=== PATIENT | female | born 1985 | race Caucasian/White ===

== ENCOUNTER 2019-09-26 14:32 | Emergency (ER) | payer SELFPAY ==
[2019-09-26] MEDS ORDERED: LORazepam 2 MG/ML VIAL ONE (15:09)
[2019-09-26 15:16] LABS: Urine Bacteria <20 /HPF (<20); Urine Culture Reflex Order NOT NEEDED; Urine RBC <5 /HPF (NONE SEEN)
--- NOTE | 2019-09-26 15:43 | RAD REPORT ---
EXAM DESCRIPTION: CT - Head Brain Wo Cont - 09/26/2019 3:11 pm CLINICAL HISTORY: Headache COMPARISON: None. TECHNIQUE: Computed axial tomography of the head was obtained. IV contrast was not requested. All CT scans are performed using dose optimization technique as appropriate and may include automated exposure control or mA/KV adjustment according to patient size. FINDINGS: An intracranial bleed is not seen . The ventricles are normal in caliber. No extra-axial fluid collection is noted. Fluid within the sinuses/ mastoids is not seen. IMPRESSION: No acute intracranial abnormality is seen. If patient's symptoms persist MRI of the bra in would be recommended.
[2019-09-26 15:47] LABS: Absolute Lymphocytes (CBC) 1.7 K/uL (0.7-4.9); Basophils % 0.8 % (0-1.3); Hematocrit 36.6 % (36.0-45.0); Lymphocytes % 26.8 % (15.3-44.8); MPV 9.4 fL (7.6-11.3); RBC Red Blood Cell Count 3.99 M/uL (3.86-4.86)
[2019-09-26 16:00] LABS: BUN Blood Urea Nitrogen 10 mg/dL (7-18); Bicarbonate 27 mmol/L (21-32); Glucose Level 118 mg/dL (74-106); Potassium 3.3 mmol/L (3.5-5.1); Sodium Level 140 mmol/L (136-145); Troponin (Emerg Dept Use Only) < 0.02 ng/mL (0.0-0.045)
[2019-09-26 16:00] LABS: Barbiturates NEGATIVE (NEGATIVE); Benzodiazepines NEGATIVE (NEGATIVE); Cocaine NEGATIVE (NEGATIVE); METHAMPHETAM NEGATIVE (NEGATIVE); Methadone NEGATIVE (NEGATIVE); Opiates NEGATIVE (NEGATIVE); Phencyclidine NEGATIVE (NEGATIVE); THC Cannibis POSITIVE (NEGATIVE)
--- OUTSIDE RECORDS SUMMARY | 2019-09-26 16:33 | XMS REPORT | Summary of Care ---
:1985 Author Organization [facility] - [facility] Address [address] [place] [id number] Care Team Providers Name Role Phone Maddi Sanders MD Primary Care Provider Reason for Visit Reason Comments Refill Request Encounter Details Date Type Department Care Team Description 08/08/2019 Refill [facility] Pediatric and Kenya Sanders, Refill Request Adult Primary Care- MD Escoto [address] [place] [address] [address] [facility], [address] [place] [address] [place] [address] [phone] Allergies Active Allergy Reactions Severity Noted Date Comments Latex Rash 12/05/2014 Nitrofurantoin Monohyd/M-Cryst Diarrhea, Other - See 1 Fever comments Meloxicam Shortness of Breath 07/15/2015 Mold Anaphylaxis High 08/22/2017 Tramadol Shortness of Breath 07/15/2015 documented as of this encounter (statuses as of 08/09/2019) Medications Medication Sig Dispensed Refills Start Date End Date Status cholecalciferol, Take 5,000 0 Ac tive vitamin D3, (VITAMIN Units by mouth D3) 1,000 unit tablet daily. ferrous sulfate (IRON Take by mouth. 0 Active ORAL) cyanocobalamin, vitamin Take by mouth. 0 Active B-12, (VITAMIN B-12 ORAL) ascorbate calcium Take by mouth. 0 Active (VITAMIN C ORAL) conjugated estrogens Insert 0.5 g 30 g 3 02/14/2018 Active (PREMARIN) 0.625 into vagina at mg/gram vaginal bedtime. Use creamIndications: twice a week Vaginal pain vaginally. cholestyramine light 1 scoop 4 times 239.4 g 3 10/23/2018 Active (CHOLESTYRAMINE LIGHT) a day. 4 gram powderIndications: Toxin exposure ESOMEPRAZOLE 40 mg TAKE 1 CAPSULE 180 capsule 1 01/23/2019 Active capsuleIndications: BY MOUTH TWICE Gastroesophageal reflux A DAY disease, esophagitis presence not specified FLUTICASONE PROPIONATE USE 1 SPRAY IN 48 g 3 02/23/2019 Active 50 mcg/actuation nasal EACH NOSTRIL 2 sprayIndications: Upper (TWO) TIMES respiratory tract DAILY. infection, unspecified type FAMOTIDINE 40 mg USE DIRECTED 90 tablet 3 04/20/2019 Active tabletIndications: Gastroesophageal reflux disease, esophagitis presence not specified TRAZODONE 50 mg TAKE 1 PILL AT 180 tablet 3 04/20/2019 Active tabletIndications: NIGHT FOR Anxiety, Other INSOMNIA, CAN insomnia, Other INCREASE TO 2 depression IF NEEDED. BUSPIRONE 10 mg TAKE 1 TABLET 180 tablet 3 04/20/2019 Active tabletIndications: BY MOUTH TWICE Anxiety A DAY PAROXETINE 30 mg TAKE 1 TABLET 90 tablet 3 05/16/2019 Active tabletIndications: BY MOUTH EVERY Reactive depression, DAY Anxiety RANITIDINE 300 mg TAKE 1 TABLET 90 tablet 1 08/09/2019 Active tabletIndications: BY MOUTH Gastroesophageal reflux EVERYDAY AT disease, esophagitis BEDTIME presence not specified documented as of this encounter (statuses as of 08/09/2019) Active Problems Problem Noted Date Anxiety 10/12/2015 Hot flashes 10/12/2015 documented as of this encounter (statuses as of 08/09/2019) Resolved Problems Problem Noted Date Resolved Date Nausea 10/12/2015 01/08/2017 Vomiting 10/12/2015 01/08/2017 Diarrhea 10/12/2015 01/08/2017 documented as of this encounter (statuses as of 08/09/2019) Immunizations Name Administration Dates Next Due Influenza Virus Vaccine Quad IM 3+ YRS 02/14/2018 PPD (TB) 02/14/2018 Tdap 11/14/2014 documented as of this encounter Social History Tobacco Use Types Packs/Day Years Used Date Former Smoker Cigarettes Smokeless Tobacco: Never Used Comments: vapes Alcohol Use Drinks/Week oz/Week Comments No Sex Assigned at Date Recorded Not on file Job Start Date Occupation Industry Not on file Not on file Not on file Travel History Travel Start Travel End No recent travel history available. documented as of this encounter Last Filed Vital Signs Not on filedocumented in this encounter Plan of Treatment Health Maintenance Due Date Last Done Comments INFLUENZA VACCINE (Season Ended) 2019 02/14/2018 DTaP,Tdap,and Td Vaccines (2 - 11/14/2024 11/14/2014 Td) PAP SMEAR Discontinued 10/31/2009 PNEUMOCOCCAL 0-64 YEARS COMBINED Aged Out No longer eligible based on SERIES patient's age to complete this topic VARICELLA VACCINES Discontinued documented as of this encounter Results Not on filedocumented in this encounter Visit Diagnoses Diagnosis Gastroesophageal reflux disease, esophag itis presence not specified documented in this encounter Insurance Payer Benefit Plan / Subscriber ID Effective Dates Phone Addre ss Type Group [facility] [id number] 2017-Present PPO documented as of this encounter
--- OUTSIDE RECORDS SUMMARY | 2019-09-26 16:33 | XMS REPORT | Summary of Care ---
:1985 Author Organization [facility] - [facility] Address [address] [place] [address] Care Team Providers Name Role Phone Maddi Sanders MD Primary Care Provider Reason for Visit Reason Comments Refill Request Encounter Details Date Type Department Care Team Description 08/09/2019 Refill [facility] Pediatric and Kenya Sanders, Refill Request Adult Primary Care- MD Escoto [address] [place] [address] [address] [facility], [address] [place] [address] [place] [address] [phone] Allergies Active Allergy Reactions Severity Noted Date Comments Latex Rash 12/05/2014 Nitrofurantoin Monohyd/M-Cryst Diarrhea, Other - See 1 Fever comments Meloxicam Shortness of Breath 07/15/2015 Mold Anaphylaxis High 08/22/2017 Tramadol Shortness of Breath 07/15/2015 documented as of this encounter (statuses as of 08/14/2019) Medications Medication Sig Dispensed Refills Start Date End Date Status cholecalciferol, Take 5,000 0 Ac tive vitamin D3, (VITAMIN Units by D3) 1,000 unit tablet mouth daily. ferrous sulfate (IRON Take by 0 Active ORAL) mouth. cyanocobalamin, Take by 0 Acti ve vitamin B-12, mouth. (VITAMIN B-12 ORAL) ascorbate calcium Take by 0 Ac tive (VITAMIN C ORAL) mouth. conjugated estrogens Insert 0.5 g 30 g 3 02/14/2018 Active (PREMARIN) 0.625 into vagina mg/gram vaginal at bedtime. creamIndications: Use twice a Vaginal pain week vaginally. cholestyramine light 1 scoop 4 239.4 g 3 10/23/2018 Active (CHOLESTYRAMINE times a day. LIGHT) 4 gram powderIndications: Toxin exposure ESOMEPRAZOLE 40 mg TAKE 1 180 capsule 1 01/23/2019 Active capsuleIndications: CAPSULE BY Gastroesophageal MOUTH TWICE A reflux disease, DAY esophagitis presence not specified FLUTICASONE USE 1 SPRAY 48 g 3 02/23/2019 Activ e PROPIONATE 50 IN EACH mcg/actuation nasal NOSTRIL 2 sprayIndications: (TWO) TIMES Upper respiratory DAILY. tract infection, unspecified type FAMOTIDINE 40 mg USE 90 tablet 3 04/20/2019 Ac tive tabletIndications: DIRECTED Gastroesophageal reflux disease, esophagitis presence not specified TRAZODONE 50 mg TAKE 1 PILL 180 tablet 3 04/20/2019 Active tabletIndications: AT NIGHT FOR Anxiety, Other INSOMNIA, CAN insomnia, Other INCREASE TO 2 depression IF NEEDED. BUSPIRONE 10 mg TAKE 1 TABLET 180 tablet 3 04/20/2019 Active tabletIndications: BY MOUTH Anxiety TWICE A DAY PAROXETINE 30 mg TAKE 1 TABLET 90 tablet 3 05/16/2019 Active tabletIndications: BY MOUTH Reactive depression, EVERY DAY Anxiety FAMOTIDINE 20 mg TAKE 1 TABLET 90 tablet 1 08/14/2019 Active tabletIndications: BY MOUTH Gastroesophageal EVERYDAY AT reflux disease, BEDTIME esophagitis presence not specified RANITIDINE 300 mg TAKE 1 TABLET 90 tablet 1 08/09/2019 0 Discontinued tabletIndications: BY MOUTH 20 Gastroesophageal EVERYDAY AT reflux disease, BEDTIME esophagitis presence not specified documented as of this encounter (statuses as of 08/14/2019) Active Problems Problem Noted Date Anxiety 10/12/2015 Hot flashes 10/12/2015 documented as of this encounter (statuses as of 08/14/2019) Resolved Problems Problem Noted Date Resolved Date Nausea 10/12/2015 01/08/2017 Vomiting 10/12/2015 01/08/2017 Diarrhea 10/12/2015 01/08/2017 documented as of this encounter (statuses as of 08/14/2019) Immunizations Name Administration Dates Next Due Influenza [...] Effective Dates Phone Addre ss Type Group [facility] [id number] 2017-Present PPO documented as of this encounter
--- OUTSIDE RECORDS SUMMARY | 2019-09-26 16:33 | XMS REPORT | Summary of Care ---
:1985 Author Organization [facility] - Health Address [address] [place] [address] Care Team Providers Name Role Phone Maddi Sanders MD Primary Care Provider Encounter Details Date Type Department Care Team Description 09/13/2019 Orders Only [facility] Doctor Unassigned, No [address] [facility] Name [place] [phone] Allergies Active Allergy Reactions Severity Noted Date Comments Latex Rash 12/05/2014 Nitrofurantoin Monohyd/M-Cryst Diarrhea, Other - See 1 Fever comments Meloxicam Shortness of Breath 07/15/2015 Mold Anaphylaxis High 08/22/2017 Tramadol Shortness of Breath 07/15/2015 documented as of this encounter (statuses as of 09/13/2019) Medications Medication Sig Dispensed Refills Start Date [...] BY MOUTH EVERY Reactive depression, DAY Anxiety FAMOTIDINE 20 mg TAKE 1 TABLET 90 tablet 1 08/14/2019 Active tabletIndications: BY MOUTH Gastroesophageal reflux EVERYDAY AT disease, esophagitis BEDTIME presence not specified documented as of this encounter (statuses as of 09/13/2019) Active Problems Problem Noted Date Anxiety 10/12/2015 Hot flashes 10/12/2015 documented as of this encounter (statuses as of 09/13/2019) Resolved Problems Problem Noted Date Resolved Date Nausea 10/12/2015 01/08/2017 Vomiting 10/12/2015 01/08/2017 Diarrhea 10/12/2015 01/08/2017 documented as of this encounter (statuses as of 09/13/2019) Immunizations Name Administration Dates Next Due Influenza [...] VACCINES Discontinued documented as of this encounter Procedures Procedure Name Priority Date/Time Associated Diagnosis Comme nts ASSIGNMENT OF BENEFITS Routine 09/13/2019 6:11 PM CDT documented in this encounter Results Not on filedocumented in this encounter Insurance Payer Benefit Plan / Subscriber ID Effective Dates Phone Addre ss Type Group [facility] [id number] 2017-Present PPO documented as of this encounter
--- OUTSIDE RECORDS SUMMARY | 2019-09-26 16:34 | XMS REPORT | Continuity of Care Document ---
:1985 Author Organization [facility] t Address [address] [place] [address] Care Team Providers Name Role Phone Tommy BALDWIN, Maddi Attending Clinician Yuliya SÁNCHEZ, L Attending Clinician Unavailable Radha Nur Attending Clinician Bud BALDWIN Attending Clinician Regi Hill Attending Clinician Doctor Unassigned, Name Attending Clinician Unavailable Bud BALDWIN Admitting Clinician Payers Payer Name Policy Type Policy Number Effective Date Expiration Date S ource Problems This patient has no known problems. Allergies, Adverse Reactions, Alerts Allergy Allergy Status Severity Reaction(s) Onset Inactive Treating Comm ents Source Name Type Date Date Clinician No DA Active U [facility] 6-15 [place] Informat 00:00: d ion 00 [facility] e Medications This patient has no known medications. Procedures This patient has no known procedures. Encounters Start End Encounter Admission Attending Care Care Encounter Source Date/Time Date/Time Type Type Clinicians Facility Department ID 2019-09-25 2019-09-25 Telephone JAY Sanders 1.2.840.114 [id number] 00:00:00 00:00:00 Lina Escoto [id number] [place] 4.2.7.2.686 [facility] [phone] [address] 2019-09-19 2019-09-19 Transition Yusuf Dwyer 1.2.840.114 [id number] 00:00:00 00:00:00 of Care Juliana Ansari [id number] [place] [phone] [id number] 2019 2019-09-17 [facility] Smita Longoria [facility] 1.2.8 40.114 [id number] 20:47:34 13:13:00 Encounter Smita hernandez [facility] 350.1.1 3.10 Delfina Farrell [place] 4.2.7.2.686 [place] [id number] 2019-09-14 2019 [facility] 1.2.840.114 [id number] 23:21:30 00:33:00 Smita Escoto 350.1.13.10 [place] 4.2.7.2.686 [place] [id number] [id number] 2019-09-13 2019-09-13 Emergency [facility] 1.2.840.114 [id number] 18:12:40 21:17:00 Magdalena Deluna [facility] 350.1.13.10 [place] 4.2.7.2.686 [place] [id number] [id number] 2019-09-13 2019-09-13 Orders Doctor BIJU 1.2.840.114 [id number] 00:00:00 00:00:00 Only Unassigned, SHAWANDA 350.1.13.10 [place] [facility] 4.2.7.2.686 [id number] 2019-08-09 2019-08-09 Refill Tommy [facility] 1.2.840.114 [id number] 00:00:00 00:00:00 Lina Escoto 350.1.13.10 [place] 4.2.7.2.686 [facility] [phone] [address] 2019-08-08 2019-08-08 Refill Tommy [facility] 1.2.840.114 [id number] 00:00:00 00:00:00 Lina Escoto 350.1.13.10 [place] 4.2.7.2.686 [facility] [id number] [facility] 2019-05-18 2019-05-18 Patient Tommy [facility] 1.2.840.114 [id number] 00:00:00 00:00:00 Secure Msg Lina Escoto 350.1.13.10 [place] 4.2.7.2.686 [facility] [id number] [address] 2019-05-16 2019-05-16 [facility] 1.2.840.114 [id number] 00:00:00 00:00:00 Lina Escoto 350.1.13.10 [place] 4.2.7.2.686 [facility] [id number] [address] 2018-12-01 2018-12-01 Office [facility] 1.2.840.114 [id number] 07:05:29 07:43:46 Visit Lina Escoto 350.1.13.10 [place] 4.2.7.2.686 [facility] [phone] [address] Results Test Description Test Time Test Comments Results Result Comments Source UA RFLX MICR CULT IF INDICATED 2019-09-18 10:54:00 Test Item Value Reference Range Interpretation Comme nts UA COLOR (test code = COLU) YELLOW discript YEL/STRAW UA APPEARANCE (test code = APPU) CLEAR discript CLEAR UA GLUCOSE DIPSTICK (test code = DGLUU) NEGATIVE mg/dL NEG UA BILIRUBIN DIPSTICK (test code = BILU) NEGATIVE mg/dL NEG UA KETONE DIPSTICK (test code = KETU) 2+ mg/dL NEG A UA SPECIFIC GRAVITY (test code = SGU) 1.010 SG 1.005-1.030 UA BLOOD DIPSTICK (test code = WAN) TRACE mg/DL NEG A UA PH DIPSTICK (test code = ANGELY) 6.0 pH UNITS 5.0-7.0 UA PROTEIN DIPSTICK (test code = PROU) NEGATIVE mg/dL NEG UA UROBILINIOGEN DIPSTICK (test code = URO) 0.2 mg/dL <2.0 UA NITRITE DIPSTICK (test code = JON) NEGATIVE SCREEN NEG UA LEUKOCYTE ESTERASE DIPSTICK (test code = LEUU) NEGATIVE Leuk/mcL NEGATIVE UA WBC (test code = WBCU) 0-1 #WBC/HPF 0-3 UA RBC (test code = RBCU) 0-1 #RBC/HPF 0-3 UA BACTERIA (test code = BACU) TRACE /HPF NONE-TRACE UA SQUAMOUS CELLS (test code = SQU) 1+ /HPF NONE A UA CULTURE NEEDED? (test code = UACULT) NO, WBC<10 Criteria Culture CHK SOURCE OF URINE: CLEAN CATCHIndication for culture: Flank PainDRUGS OF ABUSE SCREEN [id number] 10:54:00 Test Item Value Reference Range Interpretation Comments URN COCAINE (test code = COCAURN) SCcutoff <300 NG/ML URN CANNABINOIDS (test code = SCcutoff <50 NG/ML CANNABURN) URN AMPHETAMINE (test code = SCcutoff <1000 NG/ML AMPHETURN) URN BARBITURATE (test code = SCcutoff <200 NG/ML BARBITURN) URN BENZODIAZEPINE (test code = SCcutoff <200 NG/ML BENZOURN) URN OPIATES (test code = OPIATURN) SCcutoff <2000 NG/ML URN PHENCYCLIDINE (PCP) (test code SCcutoff <25 NG/ML = PHENCURN) URN METHADONE (test code = SCcutoff <300 NG/ML METHAURN) SOURCE OF URINE: CLEAN CATCHIndication for culture: Flank PainUA RFLX MICR CULT IF [id number] 10:54:00 Test Item Value Reference Range Interpretation Comments UA COLOR (test code = YELLOW discript YEL/STRAW COLU) UA APPEARANCE (test code CLEAR discript CLEAR = APPU) UA GLUCOSE DIPSTICK (test NEGATIVE mg/dL NEG code = DGLUU) UA BILIRUBIN DIPSTICK NEGATIVE mg/dL NEG (test code = BILU) UA KETONE DIPSTICK (test 2+ mg/dL NEG A code = KETU) UA SPECIFIC GRAVITY (test 1.010 SG 1.005-1.030 code = SGU) UA BLOOD DIPSTICK (test TRACE mg/DL NEG A code = WAN) UA PH DIPSTICK (test code 6.0 pH UNITS 5.0-7.0 = ANGELY) UA PROTEIN DIPSTICK (test NEGATIVE mg/dL NEG code = PROU) UA UROBILINIOGEN DIPSTICK 0.2 mg/dL <2.0 (test code = URO) UA NITRITE DIPSTICK (test NEGATIVE SCREEN NEG code = JON) UA LEUKOCYTE ESTERASE NEGATIVE Leuk/mcL NEGATIVE DIPSTICK (test code = LEUU) UA WBC (test code = WBCU) 0-1 #WBC/HPF 0-3 UA RBC (test code = RBCU) 0-1 #RBC/HPF 0-3 UA BACTERIA (test code = TRACE /HPF NONE-TRACE BACU) UA SQUAMOUS CELLS (test 1+ /HPF NONE A code = SQU) UA CULTURE NEEDED? (test NO, WBC<10 Criteria Culture CHK code = UACULT) SOURCE OF URINE: CLEAN CATCHIndication for culture: Flank PainDRUGS OF ABUSE SCREEN [id number] 10:54:00 Test Item Value Reference Range Interpretation Comments URN COCAINE (test code = NEGATIVE SCcutoff <300 NG/ML COCAURN) URN CANNABINOIDS (test code POSITIVE SCcutoff <50 NG/ML A = CANNABURN) URN AMPHETAMINE (test code NEGATIVE SCcutoff <1000 NG/ML = AMPHETURN) URN BARBITURATE (test code NEGATIVE SCcutoff <200 NG/ML = BARBITURN) URN BENZODIAZEPINE (test NEGATIVE SCcutoff <200 NG/ML code = BENZOURN) URN OPIATES (test code = NEGATIVE SCcutoff <2000 NG/ML OPIATURN) URN PHENCYCLIDINE (PCP) NEGATIVE SCcutoff <25 NG/ML (test code = PHENCURN) URN METHADONE (test code = NEGATIVE SCcutoff <300 NG/ML METHAURN) SOURCE OF URINE: CLEAN CATCHIndication for culture: Flank PainBASIC METABOLIC [id number] 10:54:00 Test Item Value Reference Range Interpretation Comments SODIUM (test code = NA) 138 mmol/L 134-147 N POTASSIUM (test code = 3.1 mmol/L 3.4-5.0 L K) CHLORIDE (test code = 104 mmol/L 100-108 N CL) CARBON DIOXIDE (test 25 mmol/L 21-32 N code = CO2) ANION GAP (test code = 9.0 GAP calc 4.0-15.0 N GAP) GLUCOSE (test code = 102 MG/DL 70-110 N GLU) BLOOD UREA NITROGEN 6 MG/DL 7-18 L (test code = BUN) GLOMERULAR FILTRATION >=60 max estimate >60 RATE (test code = GFR) estGFR CREATININE (test code = 0.8 MG/DL 0.6-1.0 N CREAT) CALCIUM (test code = CA) 9.2 MG/DL 8.5-10.1 N Last Dose Date: 09/16/19 Dose Time: 945HEPATIC FUNCTION [id number] 10:54:00 Test Item Value Reference Range Interpretation Comments TOTAL PROTEIN (test code = PROT) 7.9 G/DL 6.4-8.2 N ALBUMIN (test code = ALB) 4.5 G/DL 3.4-5.0 N BILIRUBIN TOTAL (test code = BILT) 0.60 MG/DL 0.2-1.2 N BILIRUBIN DIRECT (test code = 0.10 MG/DL 0.00-0.30 N BILD) BILIRUBIN INDIRECT (test code = 0.50 MG/DL 0.2-1.2 N BILIND) SGOT/AST (test code = AST) 15 Unit/L 15-37 N SGPT/ALT (test code = ALT) 25 Unit/L 12-78 N ALKALINE PHOSPHATASE TOTAL (test 73 Unit/L 45-117 N code = ALKP) Last Dose Date: 09/16/19 Dose Time: 945THYROID STIMULATING HORMONE 2019-09-18 10:54:00 Test Item Value Reference Range Interpretation Comments THYROID STIMULATING HORMONE 1.830 mcIU/ML 0.340-4.820 N (test code = TSH) Last Dose Date: 09/16/19 Dose Time: [id number] 10:54:00 Test Item Value Reference Range Interpretation Comments ACETAMINOPHEN (test code = ACET) < 2.0 mcG/ML 10.0-30.0 L Last Dose Date: 09/16/19 Dose Time: [id number] 10:54:00 Test Item Value Reference Range Interpretation Comments ALCOHOL (test code = ALC) < 3 MG/DL 0-10 N Last Dose Date: 09/16/19 Dose Time: 945- CT HEAD/BRAIN W/O [id number] 10:53:00 Name: KAMILA WRIGHT : 1985 Age/S: 34 / F [address] [place] Unit #: [id number] Loc: [place] [address] Phys: Bonita Bullock MD Acct: [id number] Dis Date: Status: REG ER PHONE #: [phone] Exam Date: 09/18/2019 1050 FAX #: Reason: AMS, new onset seizure EXAMS: CPT: [id number] CT HEAD/BRAIN W/O CONT 52816 CLINICAL HISTORY: AMS, new onset of seizures. CT brain, unenhanced. Reformatted sagittal and coronal images. COMPARISON: None. Automated exposure control, iterative reconstruction technique, and/or adjustment of mA and/or kV according to patient's size was utilized for optimum radiation dose reduction. An unenhanced study of the brain was performed. The cortical pattern is symmetric. No structural abnormality found. No focal areasof cortical hemorrhage or edema. No subdural hemorrhage, mass effect, or findings of CVA can be seen. No evidence of ventricular shift. The posterior fossa structures appear to be intact. Bone window settings do not show any evidence of skull fracture. Visualized sinuses appear to be clear. Empty sella appearance.. IMPRESSION: No acute appearing intracranial abnormality. No structural abnormality. Location: U19 at 1053 Reported and signed by: Roberto Hilliard M.D CC: Bonita Bullock MD Technologist:Francesca Blackmon RT(R)(CT) CTDI: DLP: Trnscb Date/Time: 09/18/2019 (1053) [email or web address] Orig Print D/T: S: 09/18/2019 (1451) PAGE 1 Signed ReportUA RFLX MICR CULT IF [id number] 10:44:00 Test Item Value Reference Range Interpretation Comments UA COLOR (test code = COLU) YELLOW discript YEL/STRAW UA APPEARANCE (test code = CLEAR discript CLEAR APPU) UA GLUCOSE DIPSTICK (test NEGATIVE mg/dL NEG code = DGLUU) UA BILIRUBIN DIPSTICK (test NEGATIVE mg/dL NEG code = BILU) UA KETONE DIPSTICK (test 2+ mg/dL NEG A code = KETU) UA SPECIFIC GRAVITY (test 1.010 SG 1.005-1.030 code = SGU) UA BLOOD DIPSTICK (test TRACE mg/DL NEG A code = WAN) UA PH DIPSTICK (test code = 6.0 pH UNITS 5.0-7.0 ANGELY) UA PROTEIN DIPSTICK (test NEGATIVE mg/dL NEG code = PROU) UA UROBILINIOGEN DIPSTICK 0.2 mg/dL <2.0 (test code = URO) UA NITRITE DIPSTICK (test NEGATIVE SCREEN NEG code = JON) UA LEUKOCYTE ESTERASE NEGATIVE Leuk/mcL NEGATIVE DIPSTICK (test code = LEUU) UA CULTURE NEEDED? (test Criteria Culture CHK code = UACULT) SOURCE OF URINE: CLEAN CATCHIndication for culture: Flank PainDRUGS OF ABUSE SCREEN [id number] 10:44:00 Test Item Value Reference Range Interpretation Comments URN COCAINE (test code = COCAURN) SCcutoff <300 NG/ML URN CANNABINOIDS (test code = SCcutoff <50 NG/ML CANNABURN) URN AMPHETAMINE (test code = SCcutoff <1000 NG/ML AMPHETURN) URN BARBITURATE (test code = SCcutoff <200 NG/ML BARBITURN) URN BENZODIAZEPINE (test code = SCcutoff <200 NG/ML BENZOURN) URN OPIATES (test code = OPIATURN) SCcutoff <2000 NG/ML URN PHENCYCLIDINE (PCP) (test code SCcutoff <25 NG/ML = PHENCURN) URN METHADONE (test code = SCcutoff <300 NG/ML METHAURN) SOURCE OF URINE: CLEAN CATCHIndication for culture: Flank PainBASIC METABOLIC [id number] 10:43:00 Test Item Value Reference Range Interpretation Comments SODIUM (test code = NA) 138 mmol/L 134-147 N POTASSIUM (test code = 3.1 mmol/L 3.4-5.0 L K) CHLORIDE (test code = 104 mmol/L 100-108 N CL) CARBON DIOXIDE (test 25 mmol/L 21-32 N code = CO2) ANION GAP (test code = 9.0 GAP calc 4.0-15.0 N GAP) GLUCOSE (test code = 102 MG/DL 70-110 N GLU) BLOOD UREA NITROGEN 6 MG/DL 7-18 L (test code = BUN) GLOMERULAR FILTRATION >=60 max estimate >60 RATE (test code = GFR) estGFR CREATININE (test code = 0.8 MG/DL 0.6-1.0 N CREAT) CALCIUM (test code = CA) 9.2 MG/DL 8.5-10.1 N Last Dose Date: 09/16/19 Dose Time: 945HEPATIC FUNCTION [id number] 10:43:00 Test Item Value Reference Range Interpretation Comments TOTAL PROTEIN (test code = PROT) 7.9 G/DL 6.4-8.2 N ALBUMIN (test code = ALB) 4.5 G/DL 3.4-5.0 N BILIRUBIN TOTAL (test code = BILT) 0.60 MG/DL 0.2-1.2 N BILIRUBIN DIRECT (test code = 0.10 MG/DL 0.00-0.30 N BILD) BILIRUBIN INDIRECT (test code = 0.50 MG/DL 0.2-1.2 N BILIND) SGOT/AST (test code = AST) 15 Unit/L 15-37 N SGPT/ALT (test code = ALT) 25 Unit/L 12-78 N ALKALINE PHOSPHATASE TOTAL (test 73 Unit/L 45-117 N code = ALKP) Last Dose Date: 09/16/19 Dose Time: 945THYROID STIMULATING HORMONE 2019-09-18 10:43:00 Test Item Value Reference Range Interpretation Comments THYROID STIMULATING HORMONE 1.830 mcIU/ML 0.340-4.820 N (test code = TSH) Last Dose Date: 09/16/19 Dose Time: [id number] 10:43:00 Test Item Value Reference Range Interpretation Comments ACETAMINOPHEN (test code = ACET) mcG/ML 10.0-30.0 Last Dose Date: 09/16/19 Dose Time: [id number] 10:43:00 Test Item Value Reference Range Interpretation Comments ALCOHOL (test code = ALC) < 3 MG/DL 0-10 N Last Dose Date: 09/16/19 Dose Time: [id number] 10:42:00 Test Item Value Reference Range Interpretation Comments SALICYLATE (test code = GISELLE) 1.9 MG/DL 2.8-20.0 THER L HCG [id number] 10:26:00 Test Item Value Reference Range Interpretation Comments HCG SERUM (test 3 mi-IU/ML 0-6 N 0 - 6 NOT code = HCG) > 6 SUGGESTIVE O F EARLY RISES TWO F OLD EVERY 2 DAYS; SUGGEST RECON FIRMING AFTER 2 DAYS. 150,000 -200,[address] TRIMESTE R 10,000 - 50,000 2ND & 3RD TRIMESTER CBC W/AUTO [id number] 10:00:00 Test Item Value Reference Range Interpretation Comments WHITE BLOOD CELL (test code = 11.3 K/mm3 3.5-11.0 H WBC) RED BLOOD CELL (test code = 4.27 M/mm3 4.70-6.10 L RBC) HEMOGLOBIN (test code = HGB) 12.8 G/DL 10.4-14.9 N HEMATOCRIT (test code = HCT) 39.4 % 31.5-44.1 N MEAN CELL VOLUME (test code = 92.3 Fl 84.5-98.6 N MCV) MEAN CELL HGB (test code = MCH) 30.0 pg 27.0-34.2 N MEAN CELL HGB CONCETRATION 32.5 G/DL 31.5-34.0 N (test code = MCHC) RED CELL DISTRIBUTION WIDTH 13.8 SD 11.5-14.5 N (test code = RDW) PLATELET COUNT (test code = 293 K/mm3 150-450 N PLT) MEAN PLATELET VOLUME (test code 11.10 fL 7.0-10.5 H = MPV) NEUTROPHIL % (test code = NT%) 71.1 % 40-76 N LYMPHOCYTE % (test code = LY%) 16.8 % 20.5-51.1 L MONOCYTE % (test code = MO%) 11.4 % 1.7-9.3 H EOSINOPHIL % (test code = EO%) 0.1 % 0.0-6.0 N BASOPHIL % (test code = BA%) 0.3 % 0.0-2.0 N NUCLEATED RBC % (test code = 0.0 /100WBC% 0.0-1.0 N NRBC%) NEUTROPHIL # (test code = NT#) 8.1 K/mm3 1.8-7.6 H IMMATURE GRANULOCYTE # (test 0.03 x10 3/uL 0.00-0.03 N code = IG#) LYMPHOCYTE # (test code = LY#) 1.9 K/mm3 0.6-3.2 N MONOCYTE # (test code = MO#) 1.3 K/mm3 0.3-1.1 H EOSINOPHIL # (test code = EO#) 0.0 K/mm3 0.0-0.4 N BASOPHIL # (test code = BA#) 0.0 K/mm3 0.0-0.1 N NUCLEATED RBC # (test code = 0.0 K/mm3 0.0-0.1 N NRBC#) MANUAL DIFF REQUIRED (test code NO DIFF/SCN CRITERIA = MDIFF)
--- OUTSIDE RECORDS SUMMARY | 2019-09-26 16:35 | XMS REPORT | Summary of Care ---
:1985 Author Organization [facility] - Health Address [address] [place] [id number] Care Team Providers Name Role Phone Maddi Sanders MD Primary Care Provider Reason for Visit Reason Comments Flank Pain Auth/Cert Status Reason Specialty Diagnoses / Referred By Referred To Procedures Contact Contact Emergency Medicine [facility] [address] [place] [address] Fax: Encounter Details Date Type Department Care Team Description 09/14/2019 - Emergency [facility] [place], Folusho Lower abd ominal pain (Primary Dx); 2019 Department F, LINE DANCER Pyelonephritis [address] [place] [address] [phone] Allergies Active Allergy Reactions Severity Noted Date Comments Latex Rash 12/05/2014 Nitrofurantoin Monohyd/M-Cryst Diarrhea, Other - See 1 Fever comments Meloxicam Shortness of Breath 07/15/2015 Mold Anaphylaxis High 08/22/2017 Tramadol Shortness of Breath 07/15/2015 documented as of this encounter (statuses as of 2019) Medications Medication Sig Dispensed Refills Start Date End Date Status cholecalciferol, Take 5,000 0 Ac tive vitamin D3, (VITAMIN Units by mouth D3) 1,000 unit tablet daily. ferrous sulfate (IRON Take by 0 Active ORAL) mouth. cyanocobalamin, vitamin Take by 0 Active B-12, (VITAMIN B-12 mouth. ORAL) ascorbate calcium Take by 0 Ac tive (VITAMIN C ORAL) mouth. conjugated estrogens Insert 0.5 g 30 g 3 02/14/2018 Active (PREMARIN) 0.625 into vagina at mg/gram vaginal bedtime. Use creamIndications: twice a week Vaginal pain vaginally. cholestyramine light 1 scoop 4 239.4 g 3 10/23/2018 Active (CHOLESTYRAMINE LIGHT) times a day. 4 gram powderIndications: Toxin exposure [...] AT disease, esophagitis BEDTIME presence not specified acetaminophen-codeine Take 1 tablet 12 tablet 0 09/13/2019 Active 300-30 mg by mouth every tabletIndications: 6 (six) hours Pyelonephritis as needed for Pain (scale 7-10) for up to 3 days. ondansetron 4 mg Take 1 tablet 15 tablet 0 09/13/2019 09/18/19 Active disintegrating by mouth every tabletIndications: 8 (eight) Dehydration hours as needed for Nausea and Vomiting (N/V) for up to 5 days. cephALEXin 500 mg Take 1 capsule 30 capsule 0 09/13/201909/22 Active capsuleIndications: by mouth 3 Urinary tract infection (three) times without hematuria, site daily for 10 unspecified, days. Pyelonephritis dicyclomine 20 mg Take 1 tablet 28 tablet 0 2019 020 Active tabletIndications: by mouth 4 Lower abdominal pain (four) times daily for 7 days. documented as of this encounter (statuses as of 2019) Active Problems Problem Noted Date Anxiety 10/12/2015 Hot flashes 10/12/2015 documented as of this encounter (statuses as of 2019) Resolved Problems Problem Noted Date Resolved Date Nausea 10/12/2015 01/08/2017 Vomiting 10/12/2015 01/08/2017 Diarrhea 10/12/2015 01/08/2017 documented as of this encounter (statuses as of 2019) Immunizations Name Administration Dates Next Due Influenza [...] Travel End No recent travel history available. COVID-19 Exposure Response Date Recorded In the last month, have you been in contact with No / Unsure 09/14/2019 11:15 PM CDT someone who was confirmed or suspected to have Coronavirus / COVID-19? documented as of this encounter Last Filed Vital Signs Vital Sign Reading Time Taken Comments Blood Pressure 122/89 2019 12:00 AM CDT Pulse 77 2019 12:00 AM CDT Temperature 37.4 C (99.4 F) 09/14/2019 11:33 PM CDT Respiratory Rate 18 2019 12:00 AM CDT Oxygen Saturation 99% 09/14/2019 11:33 PM CDT Inhaled Oxygen Concentration - - Weight 63.5 kg (140 lb) 09/14/2019 11:33 PM CDT Height 160 cm (5' 3") 09/14/2019 11:33 PM CDT Body Mass Index 24.8 09/14/2019 11:33 PM CDT documented in this encounter Discharge Instructions Rosangela Mel RadhaYUNIOR - 2019 You were seen today for Chief Complaint Patient presents with Flank Pain Your ER diagnosis was ICD-10-CM ICD-9-CM 1. Lower abdominal pain R10.30 789.09 2. Pyelonephritis N12 590.80 NO LIFE-THREATENING FINDINGS ON TODAY'S EXAM. YOUR PRESCRIPTIONS : Medication List ASK your doctor about these medications acetaminophen-codeine 300-30 mg tablet Commonly known as: TYLENOL #3 Take 1 tablet by mouth every 6 (six) hours as needed for Pain (scale 7-10) for up to 3 days. busPIRone 10 mg tablet Commonly known as: BUSPAR TAKE 1 TABLET BY MOUTH TWICE A DAY cephALEXin 500 mg capsule Commonly known as: KEFLEX Take 1 capsule by mouth 3 (three) times daily for 10 days. cholestyramine light 4 gram powder Commonly known as: CHOLESTYRAMINE LIGHT 1 scoop 4 times a day. conjugated estrogens 0.625 mg/gram vaginal cream Commonly known as: PREMARIN Insert 0.5 g into vagina at bedtime. Use twice a week vaginally. esomeprazole 40 mg capsule Commonly known as: NEXIUM TAKE 1 CAPSULE BY MOUTH TWICE A DAY * famotidine 40 mg tablet Commonly known as: PEPCID USE DIRECTED * famotidine 20 mg tablet Commonly known as: PEPCID AC TAKE 1 TABLET BY MOUTH EVERYDAY AT BEDTIME fluticasone propionate 50 mcg/actuation nasal spray USE 1 SPRAY IN EACH NOSTRIL 2 (TWO) TIMES DAILY. IRON ORAL ondansetron 4 mg disintegrating tablet Commonly known as: ZOFRAN-ODT Take 1 tablet by mouth every 8 (eight) hours as needed for Nausea and Vomiting (N/V) for up to 5 days. PARoxetine 30 mg tablet Commonly known as: PAXIL TAKE 1 TABLET BY MOUTH EVERY DAY traZODone 50 mg tablet Commonly known as: DESYREL TAKE 1 PILL AT NIGHT FOR INSOMNIA, CAN INCREASE TO 2 IF NEEDED. VITAMIN B-12 ORAL VITAMIN C ORAL VITAMIN D3 25 mcg (1,000 unit) tablet Generic drug: cholecalciferol (vitamin D3) * This list has 2 medication(s) that are the same as other medications prescribed for you. Read thedirections carefully, and ask your doctor or other care provider to review them with you. ER precautions and follow up : 1. Return to ER if your symptoms should worsen or fail to improve within 72 hours. 2. The care provided in the emergency room was for acute problems only. 3. You should follow up with your primary care provider within 72 hours. 4. Fill and take all your medications as prescribed. 5. Make sure you are staying adequately hydrated. Busque attencion immediatamente si usted tiene los sitomas sigue, vuelve peor o si hay sitomas nuevas o para cualquiera preoccupacion incluyendo dolor del pecho, falta aire, se siente debile, mas fievre, mas dolor, nausea, vomitando, sangrando que no es normal, confusion, baja or pierdas conciencia. FOLLOW-UP RECOMMENDATIONS: RECOMMEND FOLLOW-UP WITH A PRIMARY CARE PROVIDER OR SPECIALIST IN 2-5 DAYS, ESPECIALLY IF NO IMPROVEMENT IN SYMPTOMS. MAY FOLLOW-UP WITH A PROVIDER OF YOUR CHOICE, SUCH : 1. A PHYSICIAN OF YOUR CHOICE 2. [facility], . LOCATIONS IN [facility] 3. [facility], [address] [place] [address]; [phone] OR, IF YOU WISH TO FOLLOW-UP WITHIN THE [facility], MAY TRY THESE OPTIONS (CLINIC APPOINTMENTS AVAILABLE ON [id number] BASIS): 1. SCHEDULE AN APPOINTMENT ONLINE AT [email or web address] 2. OR CALL THE [facility] AT OR 3. OR CALL YOUR [facility] PHYSICIAN'S OFFICE DIRECTLY IF YOU ARE ALREADY AN ESTABLISHED [facility] PATIENT. AttachmentsThe following attachments cannot be sent through Care Everywhere. Pyelonephritis, Discharge Instructions for (Ethiopian)documented in this encounter Plan of Treatment Health Maintenance Due Date Last Done Comments Depression Screening 1995 INFLUENZA VACCINE (Season Ended) 2019 02/14/2018 DTaP,Tdap,and Td Vaccines (2 - 11/14/2024 11/14/2014 Td) PAP SMEAR Discontinued 10/31/2009 PNEUMOCOCCAL 0-64 YEARS COMBINED Aged Out No longer eligible based on SERIES patient's age to complete this topic VARICELLA VACCINES Discontinued documented as of this encounter Procedures Procedure Name Priority Date/Time Associated Diagnosis Comme nts POCT TEST LILI 09/14/2019 11:58 PM Lower abdomina l pain Results for this CDT procedure are i n the results section. NOTICE OF PRIVACY Routine 09/14/2019 11:17 PM PRACTICES CDT CONSENT/REFUSAL FOR Routine 09/14/2019 11:17 PM DIAGNOSIS AND CDT TREATMENT documented in this encounter Results POCT TEST (09/14/2019 11:58 PM CDT) Pathologist Sig nature POCT PREG Negative On board controls acceptable Present with C Line POCT PREG LOT # [id number] POCT PREG TEST DATE 11/02/2020 Specimen Urine - URINE, CLEAN CATCH documented in this encounter Visit Diagnoses Diagnosis Lower abdominal pain - Primary Abdominal pain, other specified site Pyelonephritis Pyelonephritis, unspecified documented in this encounter Administered Medications Medication Order MAR Action Action Date Dose Rate Site dexamethasone (DECADRON Given 09/14/2019 11:59 PM CDT 10 mg Right Arm PHOSPHATE) injection 10 mg 10 mg, Intramuscular, ONCE, 1 dose, 09/15/19 at 0045, STAT ketorolac (TORADOL) injection 30 mg Given 2019 12:00 AM CDT 30 mg Left Arm 30 mg, Intramuscular, ONCE, 1 dose, Wed09/15/19 at 0045, [facility], body team member approving Restricted medication: MEL DOZIER maalox:diphenhydrAMINE:lidocaine 2 % viscous Given 03/2020 12:00 AM CDT 15 mL 1:1:1 (FIRST-MOUTHWASH BLM) oral suspension 15 mL 15 mL, Oral, ONCE, 1 dose, 09/15/19 at 0045, Routine documented in this encounter Insurance Payer Benefit Plan / Subscriber ID Effective Dates Phone Addre ss Type Group [facility] [id number] 2017-Present PPO ([place]) [place] [address] documented as of this encounter
--- OUTSIDE RECORDS SUMMARY | 2019-09-26 16:35 | XMS REPORT | Summary of Care ---
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 [address] [place] [address] Reason for Visit Reason Comments Flank Pain Auth/Cert Status Reason Specialty Diagnoses / Referred By Referred To Procedures Contact Contact Emergency Medicine [facility] Dept [address] [place], [place] [address] Fax: Encounter Details Date Type Department Care Team Description 09/13/2019 Emergency ADC-Emergency Magdalena Smith Pyelonephrit is (Primary Dx); Department 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, 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 Flank pain; [address] [place] [address] Urinary tract infection without hematuri a, site unspecified; [place], [place] Intractable vomiting with na usea, unspecified vomiting type; [place] [phone] Dehydration [phone] Allergies Active Allergy Reactions Severity Noted Date Comments Latex Rash 12/05/2014 Nitrofurantoin Monohyd/M-Cryst Diarrhea, Other - See 1 Fever comments Meloxicam Shortness of Breath 07/15/2015 Mold Anaphylaxis High 08/22/2017 Tramadol Shortness of Breath 07/15/2015 documented as of this encounter (statuses as of 09/13/2019) Medications Medication Sig Dispensed Refills Start End Date Status Date cholecalciferol, Take 5,000 0 Ac tive vitamin D3, (VITAMIN Units by D3) 1,000 unit mouth daily. tablet ferrous sulfate Take by 0 Acti ve (IRON ORAL) mouth. cyanocobalamin, Take by 0 Acti ve vitamin B-12, mouth. (VITAMIN B-12 ORAL) ascorbate calcium Take by 0 Ac tive (VITAMIN C ORAL) mouth. conjugated estrogens Insert 0.5 g 30 g 3 Active (PREMARIN) 0.625 into vagina 8 mg/gram vaginal at bedtime. creamIndications: Use twice a Vaginal pain week vaginally. cholestyramine light 1 scoop 4 239.4 g 3 Active (CHOLESTYRAMINE times a day. 9 LIGHT) 4 gram powderIndications: Toxin exposure ESOMEPRAZOLE 40 mg TAKE 1 180 capsule 1 Active capsuleIndications: CAPSULE BY 9 Gastroesophageal MOUTH TWICE reflux disease, A DAY esophagitis presence not specified FLUTICASONE USE 1 SPRAY 48 g 3 Active PROPIONATE 50 IN EACH 9 mcg/actuation nasal NOSTRIL 2 sprayIndications: (TWO) TIMES Upper respiratory DAILY. tract infection, unspecified type FAMOTIDINE 40 mg USE 90 tablet 3 Act yana tabletIndications: DIRECTED 0 Gastroesophageal reflux disease, esophagitis presence not specified TRAZODONE 50 mg TAKE 1 PILL 180 tablet 3 A ctive tabletIndications: AT NIGHT FOR 0 Anxiety, Other INSOMNIA, insomnia, Other CAN INCREASE depression TO 2 IF NEEDED. BUSPIRONE 10 mg TAKE 1 180 tablet 3 Act yana tabletIndications: TABLET BY 0 Anxiety MOUTH TWICE A DAY PAROXETINE 30 mg TAKE 1 90 tablet 3 Act yana tabletIndications: TABLET BY 0 Reactive depression, MOUTH EVERY Anxiety DAY FAMOTIDINE 20 mg TAKE 1 90 tablet 1 Act yana tabletIndications: TABLET BY 0 Gastroesophageal MOUTH reflux disease, EVERYDAY AT esophagitis presence BEDTIME not specified acetaminophen-codein Take 1 12 tablet 0 09/16/19 Active e 300-30 mg tablet by 0 20 tabletIndications: mouth every Pyelonephritis 6 (six) hours as needed for Pain (scale 7-10) for up to 3 days. ondansetron 4 mg Take 1 15 tablet 0 09/18/19 Act yana disintegrating tablet by 0 20 tabletIndications: mouth every Dehydration 8 (eight) hours as needed for Nausea and Vomiting (N/V) for up to 5 days. cephALEXin 500 mg Take 1 30 capsule 0 09/23/19 A ctive capsuleIndications: capsule by 0 20 Urinary tract mouth 3 infection without (three) hematuria, site times daily unspecified, for 10 days. Pyelonephritis cephALEXin 250 mg Take 2 60 capsule 0 09/13/19 D iscontinued capsuleIndications: capsules by 0 20 (Error) Pyelonephritis mouth 3 (three) times daily for 10 days. documented as of this encounter (statuses [...] been in contact with No / Unsure 09/13/2019 6:18 PM CDT someone who was confirmed or suspected to have Coronavirus / COVID-19? documented as of this encounter Last Filed Vital Signs Vital Sign Reading Time Taken Comments Blood Pressure 125/88 09/13/2019 8:21 PM CDT Pulse 76 09/13/2019 8:21 PM CDT Temperature 37.6 C (99.6 F) 09/13/2019 8:21 PM CDT Respiratory Rate 16 09/13/2019 8:21 PM CDT Oxygen Saturation 99% 09/13/2019 8:21 PM CDT Inhaled Oxygen Concentration - - Weight 62.6 kg (138 lb) 09/13/2019 6:19 PM CDT Height 160 cm (5' 3") 09/13/2019 6:19 PM CDT Body Mass Index 24.45 09/13/2019 6:19 PM CDT documented in this encounter Discharge Instructions Edward Magdalenaenid Deluna, YUNIOR - 09/13/2019DIAGNOSIS 1. Pyelonephritis 2. Flank pain 3. Nausea, resolving NO LIFE-THREATENING FINDINGS ON TODAY'S EXAM. PROCEDURES IN THE ER TODAY: CT abd/pelvis, labs MEDICATIONS ADMINISTERED IN THE ER TODAY: Keflex, IV bolus, morphine, zofran YOUR PRESCRIPTIONS AND [id number] MEDICATION RECOMMENDATIONS: Keflex Zofran for nausea Tylenol #3 for acute pain FOLLOW-UP RECOMMENDATIONS: RECOMMEND FOLLOW-UP WITH A PRIMARY CARE PROVIDER OR SPECIALIST IN 2-5 DAYS, ESPECIALLY IF NO IMPROVEMENT IN SYMPTOMS. TO FOLLOW-UP WITHIN THE [facility], TRY THESE OPTIONS (CLINIC APPOINTMENTS AVAILABLE ON PQOT-AF-BJTH BASIS): 1. SCHEDULE AN APPOINTMENT ONLINE AT [email or web address] 2. OR CALL THE [facility] ACCESS CENTER AT OR 3. OR CALL YOUR [facility] PHYSICIAN'S OFFICE DIRECTLY IF YOU ARE ALREADY AN ESTABLISHED [facility] PATIENT. OR, YOU MAY FOLLOW-UP WITH A PROVIDER OF YOUR CHOICE, SUCH : 1. A PHYSICIAN OF YOUR CHOICE 2. [facility], . LOCATIONS IN [facility] 3. [facility], [address] [place] [address]; [phone] RETURN TO ER FOR WORSENING OF SYMPTOMS. Please follow up with your PCP in 1 week for reevaluation of symptoms Come back to the ER if you have worsening fevers over 100.4 F not controlled by tylenol or motrin, cannot tolerate fluids/ food, have not urinated in > 8 hours, are persistently vomiting AttachmentsThe following attachments cannot be sent through Care Everywhere. Urinary Tract Infections in Women (Ivorian)Pyelonephritis, Female (Adult) (Ivorian)Pyelonephritis, Discharge Instructions for (Ivorian)documented in this encounter Plan of Treatment Name Type Priority Associated Diagnoses Date/Ti me URINE CULTURE LAB STAT Flank pain 09/13/2019 8: 22 PM CDT Name Type Priority Associated Diagnoses Order S chedule URINE CULTURE LAB Routine Flank pain ONCE for 1 Occ urrences starting 09/13/2019 unti l 09/13/2019 Health Maintenance Due Date Last Done Comments Depression Screening 1995 INFLUENZA VACCINE (Season Ended) 2019 02/14/2018 DTaP,Tdap,and Td Vaccines (2 - 11/14/2024 11/14/2014 Td) PAP SMEAR Discontinued 10/31/2009 PNEUMOCOCCAL 0-64 YEARS COMBINED Aged Out No longer eligible based on SERIES patient's age to complete this topic VARICELLA VACCINES Discontinued documented as of this encounter Procedures Procedure Name Priority Date/Time Associated Comments Diagnosis URINALYSIS STAT 09/13/2019 6:58 Flank pain Results for this PM CDT procedure are i n the results section. CT ABDOMEN PELVIS WO STAT 09/13/2019 6:55 Flank pain Res ults for this CONTRAST PM CDT procedure are i n the results section. CBC WITH DIFFERENTIAL STAT 09/13/2019 6:36 Flank pain Re sults for this PM CDT procedure are i n the results section. CBC WITH DIFFERENTIAL STAT 09/13/2019 6:36 Flank pain Re sults for this PM CDT procedure are i n the results section. COMP. METABOLIC PANEL STAT 09/13/2019 6:36 Flank pain Re sults for this (20226) PM CDT procedure are i n the results section. LIPASE STAT Add-On 09/13/2019 6:36 Flank pain Results for this PM CDT procedure are i n the results section. NOTICE OF PRIVACY Routine 09/13/2019 6:11 PRACTICES PM CDT documented in this encounter Results URINALYSIS (09/13/2019 6:58 PM CDT) Pathologist Sig nature APPEARANCE Clear Clear [facility] COLOR Eva (A) Yellow [facility] PH 5.0 4.8 - 8.0 [facility] SP GRAVITY 1.030 1.003 - 1.030 [facility] GLU U QUAL Normal Normal [facility] BLOOD Negative Negative [facility] KETONES 80 mg/dL (A) Negative [facility] PROTEIN Negative Negative [facility] UROBILIN 2.0 mg/dL (A) Normal [facility] BILIRUBIN Negative Negative [facility] NITRITE Negative Negative [facility] LEUK KRISHAN Negative Negative [facility] RBC/HPF 1 0 - 3 HPF [facility] WBC/HPF <1 0 - 5 HPF [facility] BACTERIA Few (A) Negative [facility] MUCOUS Slight (A) Negative LPF [facility] SQ EPITH 3 HPF [facility] Specimen Urine - URINE, CLEAN CATCH Performing Organization Address City/State/Zipcode Phone Number [facility] CLIA: [id number], [address] [place], [place] [address] ABDOMEN PELVIS WO CONTRAST (09/13/2019 6:55 PM CDT) Specimen Impressions Performed At PACS/VR/DOSE No acute intra-abdominal or pelvic findi ngs. No urinary system calculi. Preliminary Report Dictated by Resident: Donavan Ivan I, Daljit Castrejon MD., have review ed this study and agree with the above report. Narrative Performed At EXAM: CT ABDOMEN AND PELVIS WITHOUT CONT RAST PACS/VR/DOSE HISTORY: 23-year-old female complaining of left flank pain. COMPARISON: CT of the abdomen dated 03/13. TECHNIQUE AND FINDINGS: Contiguous axial imaging from the level of the lung bases through the proximal thighs was pe rformed without the intravenous administration of contrast. Coronal and sagittal reconstructions were obtained. Auto mA and/or iterative recon struction were used to reduce radiation dose. FINDINGS: Limited evaluation of abdominal and pelvic o rgans due to lack of intravenous contrast. LOWER THORAX: The lungs bases are clear. LIVER: Focal hypoattenuation at the falc iform ligament, likely focal fat infiltration. Otherwise, no focal hepatic lesions iden tified within limits of unenhanced technique. Normal liver co ntour. GALLBLADDER AND BILIARY TREE: Suggestion of layering sludge. SPLEEN: No splenomegaly. PANCREAS: No ductal dilation. ADRENAL GLANDS: No adrenal nodules. KIDNEYS: No hydronephrosis or nephrolith iasis. Mildly hyperattenuating medullary pyramids can be seen with dehy dration. PERITONEUM AND RETROPERITONEUM: No free air or fluid. LYMPH NODES: No lymphadenopathy. GI TRACT: No dilation or abnormal wall t hickening. Normal appendix. PELVIS/BLADDER: Changes of hysterectomy. Ovaries are not visualized. The urinary bladder is decompressed. No urin osmani bladder calculi. VESSELS: Unremarkable. BONES AND SOFT TISSUES: No suspicious ly tic or sclerotic bony lesions. Enlarged left anterior abdominal wall me tallic density. Procedure Note [facility], Radiant Results Inft User - 2019 8:17 PM CDT EXAM: CT ABDOMEN AND PELVIS WITHOUT CONTRAST HISTORY: 23-year-old female complaining of left flank pain. COMPARISON: CT of the abdomen dated 03/13. TECHNIQUE AND FINDINGS: Contiguous axial imaging from the level of the lung bases through the proximal thighs was pe rformed without the intravenous administration of contrast. Coronal and sagittal reconstructions were obtained. Auto mA and/or iterative recon struction were used to reduce radiation dose. FINDINGS: Limited evaluation of abdomina l and pelvic organs due to lack of intravenous contrast. LOWER THORAX: The lungs bases are clear. LIVER: Focal hypoattenuation at the falc iform ligament, likely focal fat infiltration. Otherwise, no focal hepati c lesions identified within limits of unenhanced technique. Normal liver co ntour. GALLBLADDER AND BILIARY TREE: Suggestion of layering sludge. SPLEEN: No splenomegaly. PANCREAS: No ductal dilation. ADRENAL GLANDS: No adrenal nodules. KIDNEYS: No hydronephrosis or nephrolith iasis. Mildly hyperattenuating medullary pyramids can be seen with dehy dration. PERITONEUM AND RETROPERITONEUM: No free air or fluid. LYMPH NODES: No lymphadenopathy. GI TRACT: No dilation or abnormal wall t hickening. Normal appendix. PELVIS/BLADDER: Changes of hysterectomy. Ovaries are not visualized. The urinary bladder is decompressed. No urin osmani bladder calculi. VESSELS: Unremarkable. BONES AND SOFT TISSUES: No suspicious ly tic or sclerotic bony lesions. Enlarged left anterior abdominal wall me tallic density. IMPRESSION No acute intra-abdominal or pelvic findi ngs. No urinary system calculi. Preliminary Report Dictated by Resident: Daljit Martinezimkowski, MD., have reviewe d this study and agree with the above report. Performing Organization Address City/State/Zipcode Phone Number PACS/VR/DOSE LIPASE (09/13/2019 6:36 PM CDT) Pathologist Sig nature LIPASE 48 0 - 220 U/L [facility] Specimen Blood - ARM, RIGHT Performing Organization Address City/State/Zipcode Phone Number [facility] CLIA: [id number], [address] [place], [place] [address] CBC WITH DIFFERENTIAL (09/13/2019 6:36 PM CDT) Pathologist Sig [facility] WBC 8.93 4.30 - 11.10 [facility] 10*3/L [facility] RBC 4.37 3.93 - 5.25 [facility] 10*6/L [facility] HGB 13.2 11.6 - 15.0 g/dL [facility] HCT 39.4 35.7 - 45.2 % [facility] MCV 90.2 80.6 - 95.5 fL [facility] MCH 30.2 25.9 - 32.8 pg [facility] MCHC 33.5 31.6 - 35.1 g/dL [facility] RDW-SD 45.1 39.0 - 49.9 fL [facility] RDW-CV 13.6 12.0 - 15.5 % [facility] PLT 254 166 - 358 [facility] 10*3/L [facility] MPV 11.2 9.5 - 12.9 fL [facility] NRBC/100 WBC 0.0 0.0 - 10.0 /100 [facility] WBCs [facility] NRBC x10^3 <0.01 10*3/L [facility] GRAN MAT (NEUT) % 65.8 % [facility] IMM GRAN % 0.40 % [facility] LYMPH % 22.5 % [facility] MONO % 10.2 % [facility] EOS % 0.8 % [facility] BASO % 0.3 % [facility] GRAN MAT x10^3(ANC) 5.87 1.88 - 7.09 [facility] 10*3/uL HOSPITAL [facility] IMM GRAN x10^3 0.04 0.00 - 0.06 [facility] 10*3/uL [facility] LYMPH x10^3 2.01 1.32 - 3.29 [facility] 10*3/uL [facility] MONO x10^3 0.91 0.33 - 0.92 [facility] 10*3/uL [facility]ITAL [facility] EOS x10^3 0.07 0.03 - 0.39 [facility] 10*3/uL [facility] BASO x10^3 0.03 0.01 - 0.07 [facility] 10*3/uL [facility] Specimen Blood - ARM, RIGHT Performing Organization Address City/State/Zipcode Phone Number [facility] CLIA: [id number], [address] [place], [place] [address] COMP. METABOLIC PANEL (56161) (09/13/2019 6:36 PM CDT) Pathologist [facility] nature NA 138 135 - 145 [facility] mmol/L [facility] K 3.4 (L) 3.5 - 5.0 [facility] mmol/L [facility] CL 105 98 - 108 mmol/L [facility] CO2 TOTAL 23 23 - 31 mmol/L [facility] AGAP 10 2 - 16 [facility] BUN 19 7 - 23 mg/dL [facility] GLUCOSE 126 (H) 70 - 110 mg/dL [facility] CREATININE 0.70 0.50 - 1.04 [facility] mg/dL [facility] TOTAL BILI 0.4 0.1 - 1.1 mg/dL [facility] CALCIUM 9.7 8.6 - 10.6 [facility] mg/dL [facility] T PROTEIN 7.6 6.3 - 8.2 g/dL [facility] ALBUMIN 4.9 3.5 - 5.0 g/dL [facility] ALK PHOS 68 34 - 122 U/L [facility] ALTv 11 5 - 35 U/L [facility] AST(SGOT) 18 13 - 40 U/L [facility] eGFR Calculation 95.2 mL/min/1.73m2 [facility] (Non-[facility] [place]) eGFR Calculation 115.4 mL/min/1.73m2 [facility] () [facility] Specimen Blood - ARM, RIGHT Narrative Performed At Association of Glomerular Filtration Rate (GFR) [place] [facility] and Staging of Kidney Disease* + + +- + | GFR (mL/min/1.73 m2) | With Kidney Damage | Without Kidney Damage + + +- + | >90 | Stage one | Normal + + +- + | 60-89 | Stage two | Decreased GFR + + +- + | 30-59 | Stage three | Stage three + + +- + | 15-29 | Stage four | Stage four + + +- + | <15 (or dialysis) | Stage five | Stage five + + +- + *Each stage assumes the associated GFR level has been in effect for at least three months. Stages 1 to 5, with or without kidney disease, indicate chronic kidney disease. Notes: Determination of stages one and two (with eGFR >59mL/min/1.73 m2) requires estimation of kidney damage for at least three months as defined by structural or functional abnormalities of the kidney, manifested by either: Pathological abnormalities or Markers of kidney damage (including abnormalities in the composition of the blood or urine or abnormalities in imaging tests). Performing Organization Address City/State/Zipcode Phone Number [facility] CLIA: [id number], [address] [place] [address] [address] documented in this encounter Visit Diagnoses Diagnosis Pyelonephritis - Primary Pyelonephritis, unspecified Flank pain Abdominal pain, unspecified site Urinary tract infection without hematuri a, site unspecified Intractable vomiting with nausea, unspec ified vomiting type Dehydration documented in this encounter Administered Medications Medication Order MAR Action Action Date Dose Rate Site cephALEXin (KEFLEX) capsule 500 Given 09/13/2019 8:20 PM CDT 50 0 mg mg 500 mg, Oral, ONCE, 1 dose, Wed09/13/19 at 2045, LILI, Reason for Anti-Infective: Empiric Therapy for Suspected Infection, Empiric Therapy Site: Urine, Duration of therapy: 7 days FENTanyl PF (SUBLIMAZE (PF)) injection 50 Given 09/13/2019 6:38 PM CDT 50 mcg mcg 50 mcg, Slow IV Push, ONCE, 1 dose, Wed09/13/19 at 1945, STAT FENTanyl PF (SUBLIMAZE (PF)) injection 50 Given 09/13/2019 8:20 PM CDT 50 mcg mcg 50 mcg, Slow IV Push, ONCE, 1 dose, Wed09/13/19 at 2100, STAT NaCl 0.9% (NS) bolus infusion New Bag 09/13/2019 6:54 PM CDT 1,000 mL 999 mL/hr 1,000 mL at 999 mL/hr, 1,000 mL, IV Piggyback, ONCE, 1 dose, Wed09/13/19 at 1930, STAT ondansetron (ZOFRAN (PF)) injection 4 mg Given 09/13/2019 6:38 PM CDT 4 mg 4 mg, Slow IV Push, ONCE, 1 dose, Wed09/13/19 at 1930, LILI documented in this encounter Insurance Payer Benefit Plan / Subscriber ID Effective Dates Phone Addre ss Type Group [facility] [id number] 2017-Present PPO ([place]) [place] [address] documented as of this encounter
--- OUTSIDE RECORDS SUMMARY | 2019-09-26 16:36 | XMS REPORT | Summary of Care ---
:1985 Author Organization [facility] Address [address] [place] [address] Care Team Providers Name Role Phone Maddi Sanders MD Primary Care Provider Reason for Visit Reason Comments Transition Of Care Encounter Details Date Type Department Care Team Description 09/19/2019 Transition of Care [facility] [address] [address] Allergies Active Allergy Reactions Severity Noted Date Comments Latex Rash 12/05/2014 Nitrofurantoin Monohyd/M-Cryst Diarrhea, Other - See 1 Fever comments Meloxicam Shortness of Breath 07/15/2015 Mold Anaphylaxis High 08/22/2017 Tramadol Shortness of Breath 07/15/2015 documented as of this encounter (statuses as of 09/19/2019) Medications Medication Sig Dispensed Refills Start Date End Date Status ESOMEPRAZOLE 40 mg TAKE 1 CAPSULE 180 capsule 1 01/23/2019 Active capsuleIndications: BY MOUTH TWICE Gastroesophageal reflux A DAY disease, esophagitis presence not specified TRAZODONE 50 mg TAKE 1 PILL AT 180 tablet 3 04/20/2019 Active tabletIndications: NIGHT FOR Anxiety, Other INSOMNIA, CAN insomnia, Other INCREASE TO 2 depression IF NEEDED. Additional information Patient taking differently: 100 mg Oral QHS, Take 1 pill at night for insomnia, can increase to 2 if needed., Indications: insomnia, Reported on 09/16/2019 12:36 AM BUSPIRONE 10 mg TAKE 1 TABLET BY 180 tablet 3 04/20/2019 Active tabletIndications: Anxiety MOUTH TWICE A DAY PAROXETINE 30 mg TAKE 1 TABLET BY 90 tablet 3 05/16/2019 Active tabletIndications: Reactive MOUTH EVERY DAY depression, Anxiety Additional information Patient taking differently: Indications: states hers is XR, Reported on 09/16/2019 12:36 AM dicyclomine 20 mg Take 1 tablet by 28 tablet 0 09/15/201909/03 Active tabletIndications: Lower mouth 4 (four) abdominal pain times daily for 7 days. ciprofloxacin HCl 500 mg Take 1 tablet by 10 tablet 0 09/17/19 20 09/22/2019 Active tabletIndications: mouth every 12 Pyelonephritis (twelve) hours for 5 days. acidophilus 100 million cell Take 1 tablet by 60 tablet 0 09/03 Active tabletIndications: mouth 2 (two) Pyelonephritis times daily. documented as of this encounter (statuses as of 09/19/2019) Active Problems Problem Noted Date Pyelonephritis 2019 Anxiety 10/12/2015 Hot flashes 10/12/2015 documented as of this encounter (statuses as of 09/19/2019) Resolved Problems Problem Noted Date Resolved Date Nausea 10/12/2015 01/08/2017 Vomiting 10/12/2015 01/08/2017 Diarrhea 10/12/2015 01/08/2017 documented as of this encounter (statuses as of 09/19/2019) Immunizations Name Administration Dates Next Due Influenza [...] filedocumented in this encounter Plan of Treatment Date Type Specialty Care Team Description 10/06/2019 Office Visit Internal Medicine Daphne Sanders MD [address] [facility] [address] [place], [place] [address] [phone] Health Maintenance Due Date Last Done Comments [...] Effective Dates Phone Addre ss Type Group [facility] UMR [id number] 2017-Present PPO documented as of this encounter
--- OUTSIDE RECORDS SUMMARY | 2019-09-26 16:36 | XMS REPORT | Summary of Care ---
:1985 Author Organization [facility] Address [address] [place] [id number] Care Team Providers Name Role Phone Maddi Sanders MD Primary Care Provider Reason for Visit Reason Comments Assessment patient not doing well Encounter Details Date Type Department Care Team Description 09/25/2019 Telephone [facility] Pediatric Gale Sanders Assessment (patient and Adult Primary A, not doing well) Care- [address] [address] [address], [address] [place] [address] [place], [place] [phone] [phone] Allergies Active Allergy Reactions Severity Noted Date Comments Latex Rash 12/05/2014 Nitrofurantoin Monohyd/M-Cryst Diarrhea, Other - See 1 Fever comments Meloxicam Shortness of Breath 07/15/2015 Mold Anaphylaxis High 08/22/2017 Tramadol Shortness of Breath 07/15/2015 documented as of this encounter (statuses as of 09/25/2019) Medications Medication Sig Dispensed Refills Start Date [...] is XR, Reported on 09/16/2019 12:36 AM acidophilus 100 million cell Take 1 tablet by 60 tablet 0 09/03 Active tabletIndications: Pyelonephritis mouth 2 (two) times daily. documented as of this encounter (statuses as of 09/25/2019) Active Problems Problem Noted Date Pyelonephritis 2019 Anxiety 10/12/2015 Hot flashes 10/12/2015 documented as of this encounter (statuses as of 09/25/2019) Resolved Problems Problem Noted Date Resolved Date Nausea 10/12/2015 01/08/2017 Vomiting 10/12/2015 01/08/2017 Diarrhea 10/12/2015 01/08/2017 documented as of this encounter (statuses as of 09/25/2019) Immunizations Name Administration Dates Next Due Influenza Virus Vaccine Quad IM 3+ YRS 02/14/2018 PPD (TB) 02/14/2018 TDAP 11/14/2014 documented as of this encounter Social [...] Treatment Date Type Specialty Care Team Description 09/29/2019 Office Visit Internal Medicine Daphne Sanders MD [address] [address] [phone] Health Maintenance Due Date Last Done Comments [...] Effective Dates Phone Addre ss Type Group [facility] UMR [id number] 2017-Present PPO documented as of this encounter
--- OUTSIDE RECORDS SUMMARY | 2019-09-26 16:36 | XMS REPORT | Summary of Care ---
:1985 Author Organization [facility] Address [address] [place] [id number] Care Team Providers Name Role Phone Maddi Cardona MD Primary Care Provider Reason for Referral (Routine) Status Reason Specialty Diagnoses / Referred By Contact Refe rred To Procedures Contact New Request Diagnoses Pyelonephritis Saurabh Stewart MD Jaramillo, Procedures Discharge Follow-up: PCP LINA CARDONA; [address] [place] [address] Lina Linda MD [place], [place] [address] [place] [address] Phone: Reji [address] [phone] Fax: MRI/CAT Scan (Routine) Status Reason Specialty Diagnoses / Referred By Referred To Procedures Contact Contact New Request Diagnostic Diagnoses Left sided numbness Confused Stephanie Farrell, Radiology Procedures CT HEAD WO CONTRAST [address] [place] [address]. [place] [address] Radiology Services (STAT) Status Reason Specialty Diagnoses / Referred By Referred To Procedures Contact Contact New Request Diagnostic Diagnoses Right upper quadrant abdominal pain Ibikunle, Radiology Procedures US GALL BLADDER Folusho F, PAYROLL AND BENEFITS ASSISTANT [address] [facility] [address] [place] [address] Reason for Visit Reason Comments Abdominal Pain Auth/Cert Status Reason Specialty Diagnoses / Referred By Referred To Procedures Contact Contact Emergency Medicine Diagnoses ABDOMINA; PAIN [facility] [address] [place] [phone] Fax: Encounter Details Date Type Department Care Team Description 2019 - Hospital Encounter ADC Medicine Ivandavid Anne rita Garcia, PAYROLL AND BENEFITS ASSISTANT [address] [place] [address] Pyelonephritis 09/17/2019 Surgery Unit Stephanie Farrell MD [address] [place] [address] [place] [address] Allergies Active Allergy Reactions Severity Noted Date Comments Latex Rash 12/05/2014 Nitrofurantoin Monohyd/M-Cryst Diarrhea, Other - See 1 Fever comments Meloxicam Shortness of Breath 07/15/2015 Mold Anaphylaxis High 08/22/2017 Tramadol Shortness of Breath 07/15/2015 documented as of this encounter (statuses as of 09/17/2019) Medications Medication Sig Dispensed Refills Start Date [...] is XR, Reported on 09/16/2019 12:36 AM ondansetron 4 mg Take 1 tablet 15 tablet 0 09/13/2019 09/18/19 20 Active disintegrating by mouth tabletIndications: every 8 Dehydration (eight) hours as needed for Nausea and Vomiting (N/V) for up to 5 days. dicyclomine 20 mg Take 1 tablet 28 tablet 0 2019 020 Active tabletIndications: Lower by mouth 4 abdominal pain (four) times daily for 7 days. ciprofloxacin HCl 500 mg Take 1 tablet 10 tablet 0 09/17/2019 09/22/2019 Active tabletIndications: by mouth Pyelonephritis every 12 (twelve) hours for 5 days. acidophilus 100 million Take 1 tablet 60 tablet 0 09/17/2019 Active cell tabletIndications: by mouth 2 Pyelonephritis (two) times daily. cholecalciferol, vitamin Take 5,000 0 09/03 Discontinued D3, (VITAMIN D3) 1,000 Units by unit tablet mouth daily. ferrous sulfate (IRON Take by 0 09/16/19 20 Discontinued ORAL) mouth. cyanocobalamin, vitamin Take by 0 2019 Discontinued B-12, (VITAMIN B-12 mouth. ORAL) ascorbate calcium Take by 0 09/16/2019 D iscontinued (VITAMIN C ORAL) mouth. conjugated estrogens Insert 0.5 g 30 g 3 02/14/201809/15 Discontinued (PREMARIN) 0.625 mg/gram into vagina vaginal at bedtime. creamIndications: Use twice a Vaginal pain week vaginally. cholestyramine light 1 scoop 4 239.4 g 3 10/23/2018 09/16/19 20 Discontinued (CHOLESTYRAMINE LIGHT) 4 times a day. gram powderIndications: Toxin exposure FLUTICASONE PROPIONATE USE 1 SPRAY 48 g 3 02/23/201909/03 Discontinued 50 mcg/actuation nasal IN EACH sprayIndications: Upper NOSTRIL 2 respiratory tract (TWO) TIMES infection, unspecified DAILY. type FAMOTIDINE 40 mg USE 90 tablet 3 04/20/2019 09/16/2019 D iscontinued tabletIndications: DIRECTED Gastroesophageal reflux disease, esophagitis presence not specified FAMOTIDINE 20 mg TAKE 1 TABLET 90 tablet 1 08/14/2019 09/16/19 20 Discontinued tabletIndications: BY MOUTH Gastroesophageal reflux EVERYDAY AT disease, esophagitis BEDTIME presence not specified acetaminophen-codeine Take 1 tablet 12 tablet 0 09/13/2019 Discontinued 300-30 mg by mouth tabletIndications: every 6 (six) Pyelonephritis hours as needed for Pain (scale 7-10) for up to 3 days. cephALEXin 500 mg Take 1 30 capsule 0 09/13/2019 09/17/2019 Discontinued capsuleIndications: capsule by Urinary tract infection mouth 3 without hematuria, site (three) times unspecified, daily for 10 Pyelonephritis days. documented as of this encounter (statuses as of 09/17/2019) Active Problems Problem Noted Date Pyelonephritis 2019 Anxiety 10/12/2015 Hot flashes 10/12/2015 documented as of this encounter (statuses as of 09/17/2019) Resolved Problems Problem Noted Date Resolved Date Nausea 10/12/2015 01/08/2017 Vomiting 10/12/2015 01/08/2017 Diarrhea 10/12/2015 01/08/2017 documented as of this encounter (statuses as of 09/17/2019) Immunizations Name Administration Dates Next Due Influenza Virus Vaccine Quad IM 3+ YRS 02/14/2018 PPD (TB) 02/14/2018 Tdap 11/14/2014 documented as of this encounter Social History Tobacco Use Types Packs/Day Years Used Date Former Smoker Cigarettes Smokeless Tobacco: Never Used Tobacco Cessation: Counseling Given: Yes Comments: vapes Alcohol Use Drinks/Week oz/Week Comments [...] Sign Reading Time Taken Comments Blood Pressure 120/86 09/17/2019 10:53 AM CDT Pulse 82 09/17/2019 10:53 AM CDT Temperature 36.6 C (97.8 F) 09/17/2019 10:53 AM CDT Respiratory Rate 20 09/17/2019 10:53 AM CDT Oxygen Saturation 96% 09/17/2019 10:53 AM CDT Inhaled Oxygen Concentration - - Weight 64 kg (141 lb) 09/16/2019 12:37 AM CDT Height 160 cm (5' 3") 09/16/2019 12:37 AM CDT Body Mass Index 24.98 09/16/2019 12:37 AM CDT documented in this encounter Discharge Instructions Debra Aguirre RN - 09/17/2019 Patient Discharge Instructions Discharge date: 09/17/2019 Discharge Orders Discharge Follow-up: PCP LINA CARDONA; 2 Weeks To PCP: LINA CARDONA [[id number]] Patient's Preferred Location: [place] Discharge Disposition: HOME, (AHR) When (Patients with risk for unplanned readmission score over 16 or those noted as Hospital Dependent should follow up within 7 days with PCP or primary DX specialist): 2 Weeks Risk of Unplanned Readmission:( Score greater than 16 indicates high risk) 10 Regular Diet; Texture: Regular. Texture Regular. Diabetic: No Discharge Condition - Discharge Condition: GOOD Discharge Activity Discharge Activity: As Tolerated VTE Propylaxis- Was ordered during hospitalization Take Home Medications These are medications ordered for you by your healthcare provider. Do not take any other medications or supplements unless advised by your healthcare provider. Current Discharge Medication List START taking these medications Details acidophilus 100 million cell tablet Take 1 tablet by mouth 2 (two) times daily. Qty: 60 tablet, Refills: 0 Associated Diagnoses: Pyelonephritis ciprofloxacin HCl 500 mg tablet Take 1 tablet by mouth every 12 (twelve) hours for 5 days. Qty: 10 tablet, Refills: 0 Associated Diagnoses: Pyelonephritis CONTINUE these medications which have NOT CHANGED Details dicyclomine 20 mg tablet Take 1 tablet by mouth 4 (four) times daily for 7 days. Qty: 28 tablet, Refills: 0 Associated Diagnoses: Lower abdominal pain ondansetron 4 mg disintegrating tablet Take 1 tablet by mouth every 8 (eight) hours as needed for Nausea and Vomiting (N/V) for up to 5 days. Qty: 15 tablet, Refills: 0 Associated Diagnoses: Dehydration PAROXETINE 30 mg tablet TAKE 1 TABLET BY MOUTH EVERY DAY Qty: 90 tablet, Refills: 3 Associated Diagnoses: Reactive depression; Anxiety BUSPIRONE 10 mg tablet TAKE 1 TABLET BY MOUTH TWICE A DAY Qty: 180 tablet, Refills: 3 Associated Diagnoses: Anxiety TRAZODONE 50 mg tablet TAKE 1 PILL AT NIGHT FOR INSOMNIA, CAN INCREASE TO 2 IF NEEDED. Qty: 180 tablet, Refills: 3 Associated Diagnoses: Anxiety; Other insomnia; Other depression ESOMEPRAZOLE 40 mg capsule TAKE 1 CAPSULE BY MOUTH TWICE A DAY Qty: 180 capsule, Refills: 1 Associated Diagnoses: Gastroesophageal reflux disease, esophagitis presence not specified STOP taking these medications acetaminophen-codeine 300-30 mg tablet Comments: Reason for Stopping: cephALEXin 500 mg capsule Comments: Reason for Stopping: For questions regarding follow-up instructions call the Healthcare Hotline at or For worsening symptoms/changing condition/problems or questions: Non-emergency/urgent: Call the Healthcare Hotline at or Emergency: Go to the closest emergency room or call 911 If you receive the patient satisfaction survey by mail please complete and return and let us know how we are doing. TOBACCO AVOIDANCE Exposure to tobacco either from smoking or from second hand (environmental) smoke or smokeless tobacco (snuff) is damaging to your health. This information is to encourage everyone to avoid tobacco exposure. It is recommended that you: ? If you smoke or use smokeless tobacco, we encourage you to quit. ? If you have already quit smoking, continue your good work! ? If you do not smoke or use smokeless tobacco, do not start. ? Avoid secondhand smoke. Additional Resources You may want to contact these organizations for further information on smoking and how to quit. [place] [employer], http://www.lungusa.org/stop-smoking/ [place] [employer], http://www.cancer.org/Healthy/StayAwayfromTobacco/index [place] [employer], http://www.heart.org/HEARTORG/GettingHealthy/QuitSmoking/Quit-Smoking_[facility] _001085_SubHomePage.jsp AttachmentsThe following attachments cannot be sent through Care Everywhere. Pyelonephritis, Discharge Instructions for (Guatemalan)Ciprofloxacin tablets (Guatemalan)Lactobacillus Oral formulations ([place]atemalan)documented in this encounter Plan of Treatment Date Type Specialty Care Team Description 10/06/2019 Office Visit Internal Medicine Daphne Cardona MD [address] [place] [address] 15 [phone] Name Type Priority Associated Diagnoses Date/Ti me BLOOD CULTURE SCREEN LAB STAT Right upper quadrant 2019 9:10 PM CDT abdominal pain URINE DRUG (LCMSMS) - LAB STAT 2019 1:42 AM CDT SYNTHETIC OPIATES PANEL URINE DRUG (LCMSMS) - LAB STAT 2019 1:42 AM CDT OPIATES PANEL Name Type Priority Associated Diagnoses Order S chedule CBC with Differential LAB Routine EVERY MORNING AT 0400 for 5 Occurrenc es starting 2019 until 0, 1 completed Basic Metabolic Panel (NA, LAB Routine E VERY MORNING AT 0400 K, CL, CO2, GLUCOSE, BUN, fo r 5 Occurrences CREATININE, CA) starting until 0, 1 completed URINE DRUG (LCMSMS) - LAB Routine ONCE f or 1 Occurrences SYNTHETIC OPIATES PANEL star ting 09/16/2019 until 0, 1 completed URINE DRUG (LCMSMS) - LAB Routine ONCE f or 1 Occurrences OPIATES PANEL starting 09/15 until 0, 1 completed TROPONIN I LAB Routine EVERY 6 HOURS ( START TIME ADJUSTABLE ) START TIME ADJUSTABLE for 2 Days starting 0 09/16/2019 until 0, 2 completed Health Maintenance Due Date Last Done Comments Depression Screening 1995 INFLUENZA VACCINE (Season Ended) 2019 02/14/2018 DTaP,Tdap,and Td Vaccines (2 - 11/14/2024 11/14/2014 Td) PAP SMEAR Discontinued 10/31/2009 PNEUMOCOCCAL 0-64 YEARS COMBINED Aged Out No longer eligible based on SERIES patient's age to complete this topic VARICELLA VACCINES Discontinued documented as of this encounter Procedures Procedure Name Priority Date/Time Associated Comments Diagnosis CBC WITH DIFFERENTIAL Routine 09/17/2019 4:33 Re sults for this AM CDT procedure are i n the results section. CBC WITH DIFFERENTIAL Routine 09/17/2019 4:33 Re sults for this AM CDT procedure are i n the results section. BASIC METABOLIC PANEL Routine 09/17/2019 4:33 Re sults for this (NA, K, CL, CO2, AM CDT procedure a re in GLUCOSE, BUN, the results CREATININE, CA) section. TROPONIN I Routine 09/17/2019 4:33 Results for this AM CDT procedure are i n the results section. TROPONIN I Routine 09/16/2019 4:38 Results for this AM CDT procedure are i n the results section. CT HEAD WO CONTRAST Routine 09/16/2019 4:02 Left sided Resu lts for this AM CDT numbness procedure are in Confused the results section. ADC / LCC - DRUG Routine 09/16/2019 1:42 Results for this SCREEN TRIAGE AM CDT procedure are in the results section. LACTIC ACID WHOLE STAT 2019 11:53 Right upper Result s for this BLOOD PM CDT quadrant abdominal procedure are in pain the results section. EKG-12 LEAD Routine 2019 11:30 PM CDT US GALL BLADDER STAT 2019 10:23 Right upper Results for this PM CDT quadrant abdominal procedure are in pain the results section. URINE CULTURE STAT 2019 9:47 Right upper Results fo r this PM CDT quadrant abdominal procedure are in pain the results section. URINALYSIS STAT 2019 9:47 Right upper Results for this PM CDT quadrant abdominal procedure are in pain the results section. COVID-19 (ID NOW STAT 2019 9:12 Right upper Results for this RAPID TESTING) PM CDT quadrant abdominal procedu re are in pain the results section. LACTIC ACID WHOLE STAT 2019 9:11 Right upper Result s for this BLOOD PM CDT quadrant abdominal procedure are in pain the results section. CBC WITH DIFFERENTIAL STAT 2019 9:10 Right upper Re sults for this PM CDT quadrant abdominal procedure are in pain the results section. CBC WITH DIFFERENTIAL STAT 2019 9:10 Right upper Re sults for this PM CDT quadrant abdominal procedure are in pain the results section. COMP. METABOLIC PANEL STAT 2019 9:10 Right upper Re sults for this (70377) PM CDT quadrant abdominal procedure are in pain the results section. TROPONIN I STAT Add-On 2019 9:10 Right upper Results for this PM CDT quadrant abdominal procedure are in pain the results Chest pain in section. adult BLOOD CULTURE SCREEN STAT 2019 9:10 Right upper PM CDT quadrant abdominal pain documented in this encounter Results CBC WITH DIFFERENTIAL (09/17/2019 4:33 AM CDT) Pathologist Sig nature WBC 8.50 4.30 - 11.10 [facility] 10*3/L [facility] RBC 3.79 (L) 3.93 - 5.25 [facility] 10*6/L [facility]ITAL [facility] HGB 11.7 11.6 - 15.0 [facility] g/dL H[facility]ITAL [facility] HCT 35.2 (L) 35.7 - 45.2 % [facility] MCV 92.9 80.6 - 95.5 fL [facility] MCH 30.9 25.9 - 32.8 pg [facility] MCHC 33.2 31.6 - 35.1 [facility] g/dL [facility] RDW-SD 47.8 39.0 - 49.9 fL [facility] RDW-CV 14.2 12.0 - 15.5 % [facility] PLT 216 166 - 358 [facility] 10*3/L [facility] MPV 12.4 9.5 - 12.9 fL [facility] NRBC/100 WBC 0.0 0.0 - 10.0 /100 [facility] WBCs [facility] NRBC x10^3 <0.01 10*3/L [facility] GRAN MAT (NEUT) % 47.4 % [facility] IMM GRAN % 0.20 % [facility] LYMPH % 40.2 % [facility] MONO % 9.8 % [facility] EOS % 1.5 % [facility] BASO % 0.9 % [facility] GRAN MAT x10^3(ANC) 4.02 1.88 - 7.09 [facility] 10*3/uL HOSPITAL LAB[facility] IMM GRAN x10^3 <0.03 0.00 - 0.06 [facility] 10*3/uL [facility]ITAL [facility] LYMPH x10^3 3.42 (H) 1.32 - 3.29 [facility] 10*3/uL [facility]ITAL [facility] MONO x10^3 0.83 0.33 - 0.92 [facility] 10*3/uL [facility]ITAL [facility] EOS x10^3 0.13 0.03 - 0.39 [facility] 10*3/uL [facility]ITAL [facility] BASO x10^3 0.08 (H) 0.01 - 0.07 [facility] 10*3/uL HOSPITAL LAB[facility]ORY Specimen Blood - ARM, LEFT Performing Organization Address [facility]/Zipcode Phone Number [facility] CLIA: [id number], [address] TROPONIN I (09/17/2019 4:33 AM CDT) Pathologist Sig nature TROPONIN I <0.012 <=0.034 ng/mL [facility] Specimen Blood - ARM, LEFT Narrative Performed At Equal or Less than 0.034 ng/ml---Normal [facility] Note: Cardiac troponin begins to rise 3-4 hours after the onset of ischemia. Repeat in 4-6 hours if the sample was drawn within 3-4 hours of the onset of the symptom and found normal. Between 0.035 and 0.120 ng/mL--- Borderline. Questionable myocardial injury or necros is Note: Serial measurement may be necessary to confirm or exclude the diagnosis of myocardial injury or necrosis; Clinical correlation (symptoms, EKGs, imaging studies, and others) required; Repeat in 4-6 hours if clinically indicated. Equal or Higher than 0.121 ng/mL---Abnormal. Myocardial Injury or Necrosis Likely Biotin has been reported to cause a negative bias, interpret results relative to patient's use of biotin. Performing Organization Address [facility] Phone Number [facility] CLIA: [id number], [address] Basic Metabolic Panel (NA, K, CL, CO2, GLUCOSE, BUN, CREATININE, CA) (09/17/2019 4:33 AM CDT) Pathologist Sig nature NA 140 135 - 145 [facility] mmol/L [facility] K 3.9 3.5 - 5.0 [facility] mmol/L [facility] CL 110 (H) 98 - 108 mmol/L [facility] CO2 TOTAL 24 23 - 31 mmol/L [facility] AGAP 6 2 - 16 [facility] BUN 7 7 - 23 mg/dL [facility] GLUCOSE 71 70 - 110 mg/dL [facility] CREATININE 0.74 0.50 - 1.04 [facility] mg/dL [facility] CALCIUM 8.7 8.6 - 10.6 [facility] mg/dL [facility] eGFR Calculation 88.8 mL/min/1.73m2 [facility] ([facility] LABORATORY [place]) eGFR Calculation 107.6 mL/min/1.73m2 [facility] () [facility] Specimen Blood - ARM, LEFT Narrative Performed At Association of Glomerular Filtration Rate (GFR) [facility] and Staging of Kidney Disease* + [...] tests). Performing Organization Address City/State/Zipcode Phone Number [facility] CLIA: [id number], [address] [place], [place] [address] TROPONIN I (09/16/2019 4:38 AM CDT) Pathologist Sig nature TROPONIN I <0.012 <=0.034 ng/mL [facility] Specimen Blood - ARM, LEFT Narrative Performed At Equal or Less than 0.034 ng/ml---Normal [facility] Note: Cardiac troponin begins to rise 3-4 hours after the onset of ischemia. Repeat in 4-6 hours if the sample was drawn within 3-4 hours of the onset of the symptom and found normal. Between 0.035 and 0.120 ng/mL--- Borderline. Questionable myocardial injury or necros is Note: Serial measurement may be necessary to confirm or exclude the diagnosis of myocardial injury or necrosis; Clinical correlation (symptoms, EKGs, imaging studies, and others) required; Repeat in 4-6 hours if clinically indicated. Equal or Higher than 0.121 ng/mL---Abnormal. Myocardial Injury or Necrosis Likely Biotin has been reported to cause a negative bias, interpret results relative to patient's use of biotin. Performing Organization Address City/State/Zipcode Phone Number [facility] CLIA: [id number], [address] [place], [place] [address] HEAD WO CONTRAST (09/16/2019 4:02 AM CDT) Specimen Impressions Performed At PACS/VR/DOSE No acute intracranial abnormality. If there is clinica l concern for acute ischemia, an MRI may be performed for mo re sensitive evaluation. Preliminary Report Dictated by Resident: Saroj Wolfe MD., have reviewe d this study and agree with the above report. Narrative Performed At CT HEAD WO CONTRAST PACS/VR/DOSE HISTORY: confusion, left sided numbness COMPARISON: None TECHNIQUE: Noncontrast CT of the brain w as obtained with coronal and sagittal reconstructions. FINDINGS: The ventricles and cerebral sulci are normal in calibe r and configuration. No hydrocephalus, midline shift or patho logical extra-axial fluid collection is present. The basal cistern s are unremarkable. There is no acute intracranial hemorrhag e or significant mass effect. No parenchymal attenuation abnormality. The cortes-white ma tter differentiation is preserved. The mastoid air cells and paranasal air sinuses are clear. The calvarium and central skull base are unremarkable. Procedure Note [facility], Radiant Results Inft User - 2019 9:[address] HEAD WO CONTRAST HISTORY: confusion, left sided numbness COMPARISON: None TECHNIQUE: Noncontrast CT of the brain w as obtained with coronal and sagittal reconstructions. FINDINGS: The ventricles and cerebral sulci are no rmal in caliber and configuration. No hydrocephalus, midline shift or patho logical extra-axial fluid collection is present. The basal cistern s are unremarkable. There is no acute intracranial hemorrhag e or significant mass effect. No parenchymal attenuation abnormality. The cortes-white matter differentiation is preserved. The mastoid air cells and paranasal air sinuses are clear. The calvarium and central skull base are unremarkable. IMPRESSION No acute intracranial abnormality. If th ere is clinical concern for acute ischemia, an MRI may be performed for mo re sensitive evaluation. Preliminary Report Dictated by Resident: Saroj Wolfe MD., have reviewed this study and agree with the above report. Performing Organization Address [facility] Phone Number PACS/VR/DOSE ADC / LCC - DRUG SCREEN TRIAGE (09/16/2019 1:42 AM CDT) BENZO U Negative Negative [facility] YASMINE U Negative Negative [facility] AMPHET Negative Negative [facility] THC Presumptive Positive Negative [facility] ()Comment: HOSPITAL Confirmation of LABORATORY Presumptive Positive THC result requires physician order. METHADONE Negative Negative [facility] Meth U Negative Negative [facility] OPIATES Presumptive Positive Negative [facility] () [facility] Cocaine Metabolite Negative Negative [facility] PROPOXY Negative Negative [facility] Tric U Negative Negative [facility] PCP Negative Negative [facility] OXYCOD Negative Negative [facility] Specimen Urine - URINE, CLEAN CATCH Narrative Performed At Urine Drug Cutoff Ranges [facility] Benzodiazepines: 150 ng/mL Barbiturates: 200 ng/mL Amphetamine: 500 ng/mL Cannabinoids: 50 ng/mL Methadone: 200 ng/mL Methamphetamine: 500 ng/mL Opiates: 100 ng/mL or 2000 ng/mL Cocaine: 150 ng/mL Propoxyphene: 300 ng/mL Tricyclics: 300 ng/mL Oxycodone: 100 ng/mL PCP: 25 ng/mL The results are to be used only for medical (i.e., treatment) purposes. Unconfirmed screening results must not be used for non-medical purposes (e.g., employment testing, legal testing). Performing Organization Address [facility] Phone Number [facility] CLIA: [id number], [address] Lactic Acid Whole Blood (2019 11:53 PM CDT) Pathologist Sig nature LACTIC ACID 1.77 0.30 - 2.60 mmol/L [facility] Specimen Blood - VENOUS Performing Organization Address [facility] Cent[facility]ode Phone Number [facility] CLIA: [id number], [address] [place], [place] [address] US GALL BLADDER (2019 10:23 PM CDT) Specimen Impressions Performed At PACS/VR/DOSE Unremarkable right upper quadrant ultras ound. No cholelithiasis. Preliminary Report Dictated by Resident: Mikhail Warren I, Daljit Castrejon MD., have review ed this study and agree with the above report. Narrative Performed At RIGHT UPPER QUADRANT ULTRASOUND PACS/VR/DOSE HISTORY: right upper quadrant pain TECHNIQUE: Survey ultrasound imaging of the abdomen wa s performed focused on the liver and biliary system including color Dopple r evaluation of the main portal vein with sales representative groceries luz ges obtained. COMPARISON: CT 09/13/2019. FINDINGS: LIVER: The liver measures 14.0 centimete rs in craniocaudal dimension. Normal echo-texture and contour. No fo reji hepatic lesion to the extent visualized. Normal hepatopetal flow within the analy n portal vein. Main portal vein measures 6 mm in AP diameter at neal hepatis. GALLBLADDER: No cholelithiasis, perichol ecystic fluid or abnormal gallbladder distention. Gallbladder wall measures 3 mm in thickness, normal. Negative sonographic Perkins's sign. The common bile duct measures 4 mm in AP diameter at neal hepatis. RIGHT KIDNEY: The visualized portion of the right kidn ey is unremarkable. PANCREAS: The visualized portions of the pancreatic body are normal. Procedure Note [facility], Radiant Results Inft User - 2019 2:27 AM CDT RIGHT UPPER QUADRANT ULTRASOUND HISTORY: right upper quadrant pain TECHNIQUE: Survey ultrasound imaging of the abdomen was performed focused on the liver and biliary system includin g color Doppler evaluation of the main portal vein with sales representative groceries luz ges obtained. COMPARISON: CT 09/13/2019. FINDINGS: LIVER: The liver measures 14.0 centimete rs in craniocaudal dimension. Normal echo-texture and contour. No foc al hepatic lesion to the extent visualized. Normal hepatopetal flow wi thin the main portal vein. Main portal vein measures 6 mm in AP diameter at neal hepatis. GALLBLADDER: No cholelithiasis, perichol ecystic fluid or abnormal gallbladder distention. Gallbladder wall measures 3 mm in thickness, normal. Negative sonographic Perkins's si gn. The common bile duct measures 4 mm in AP diameter at neal hepatis. RIGHT KIDNEY: The visualized portion of the right kidney is unremarkable. PANCREAS: The visualized portions of the pancreatic body are normal. IMPRESSION Unremarkable right upper quadrant ultras ound. No cholelithiasis. Preliminary Report Dictated by Resident: Mikhail Warren I, Daljit Castrejon MD., have reviewe d this study and agree with the above report. Performing Organization Address City/State/Zipcode Phone Number PACS/VR/DOSE URINE CULTURE (2019 9:47 PM CDT) Pathologist Sig nature URINE CULTURE No aerobic growth [facility] (< 1000 CFU/mL) SERVICES Specimen Urine - URINE, CLEAN CATCH Performing Organization Address [facility] Centercode Phone Number [facility] CLIA: [id number], [address] [place], [place] [address] [facility] URINALYSIS (2019 9:47 PM CDT) Pathologist Sig nature APPEARANCE Hazy (A) Clear [facility] COLOR Yellow Yellow [facility] PH 5.0 4.8 - 8.0 [facility] SP GRAVITY 1.035 (H) 1.003 - 1.030 [facility] GLU U QUAL 150 mg/dL (A) Normal [facility] BLOOD 1+ (A) Negative [facility] KETONES 20 mg/dL (A) Negative [facility] PROTEIN 30 mg/dL (A) Negative [facility] UROBILIN 2.0 mg/dL (A) Normal [facility] BILIRUBIN Negative Negative [facility] NITRITE Negative Negative [facility] LEUK KRISHAN 250/uL (A) Negative [facility] RBC/HPF 21 (H) 0 - 3 HPF [facility] WBC/HPF 5 0 - 5 HPF [facility] BACTERIA Few (A) Negative [facility] MUCOUS Moderate (A) Negative LPF [facility] SQ EPITH 4 HPF [facility] Specimen Urine - URINE, CLEAN CATCH Performing Organization Address City/[facility] Centercode Phone Number [facility] CLIA: [id number], [address] [place], [place] [address] COVID-19 (ID NOW RAPID TESTING) (2019 9:12 PM CDT) SARS-CoV-2 Rapid ID Not Detected Not Detected [facility] Specimen Swab - NASOPHARYNGEAL SWAB Narrative Performed At ID NOW COVID-19 Assay is an isothermal nucleic [facility] acid amplification test intended for the qualitative detection of nucleic acid from SARS-CoV-2 viral RNA in nasopharyngeal (MYCOLOGY TEACHER) specimens. It is used under Emergency Use Authorization (EUA) by FDA. The limit of detection (LOD) of the assay is 125 Genome Equivalents/mL. A positive result is indicative of the presence of SARS-CoV-2 RNA. Clinical correlation with patient history and other diagnostic information is necessary to determine patient infection status. A negative (Not Detected) result does not preclude SARS-CoV-2 infection. In patients with clinical symptoms and other tests that are consistent with SARS-CoV-2 infection, negative results should be treated as presumptive negative and a new specimen should be tested with alternative PCR molecular test. Invalid: Please collect a new specimen for repeat patient testing if clinically indicated. Performing Organization Address City/[facility]/Zipcode Phone Number [facility] CLIA: [id number], [address] [place] [address] [address] [facility] Lactic Acid Whole Blood (2019 9:11 PM CDT) Pathologist Sig liss LACTIC ACID 2.34 0.30 - 2.60 mmol/L [facility] Specimen Blood - ARM, LEFT Performing Organization Address [facility]/Zipcode Phone Number [facility] CLIA: [id number], [address] [place], [place] [address] TROPONIN I (2019 9:10 PM CDT) Pathologist Sig liss TROPONIN I <0.012 <=0.034 ng/mL [facility] Specimen Blood - VENOUS Narrative Performed At Equal or Less than 0.034 ng/ml---Normal [facility] Note: Cardiac troponin begins to rise 3-4 hours after the onset of ischemia. Repeat in 4-6 hours if the sample was drawn within 3-4 hours of the onset of the symptom and found normal. Between 0.035 and 0.120 ng/mL--- Borderline. Questionable myocardial injury or necros is Note: Serial measurement may be necessary to confirm or exclude the diagnosis of myocardial injury or necrosis; Clinical correlation (symptoms, EKGs, imaging studies, and others) required; Repeat in 4-6 hours if clinically indicated. Equal or Higher than 0.121 ng/mL---Abnormal. Myocardial Injury or Necrosis Likely Biotin has been reported to cause a negative bias, interpret results relative to patient's use of biotin. Performing Organization Address City/State/Zipcode Phone Number [facility] CLIA: [id number], [address] [place], [place] [address] CBC WITH DIFFERENTIAL (2019 9:10 PM CDT) Pathologist Sig nature WBC 20.26 (H) 4.30 - 11.10 [facility] 10*3/L [facility] RBC 4.40 3.93 - 5.25 [facility] 10*6/L [facility] HGB 13.5 11.6 - 15.0 [facility] g/dL [facility] HCT 39.5 35.7 - 45.2 % [facility] MCV 89.8 80.6 - 95.5 fL [facility] MCH 30.7 25.9 - 32.8 pg [facility] MCHC 34.2 31.6 - 35.1 [facility] g/dL [facility] RDW-SD 44.3 39.0 - 49.9 fL [facility] RDW-CV 13.5 12.0 - 15.5 % [facility] PLT 298 166 - 358 [facility] 10*3/L [facility] MPV 11.9 9.5 - 12.9 fL [facility] NRBC/100 WBC 0.0 0.0 - 10.0 /100 [facility] WBCs [facility] NRBC x10^3 <0.01 10*3/L [facility] GRAN MAT (NEUT) % 78.7 % [facility] IMM GRAN % 0.80 % [facility] LYMPH % 11.6 % [facility] MONO % 8.7 % [facility] EOS % 0.0 % [facility] BASO % 0.2 % [facility] GRAN MAT x10^3(ANC) 15.94 (H) 1.88 - 7.09 [facility] 10*3/uL [facility] IMM GRAN x10^3 0.16 (H) 0.00 - 0.06 [facility] 10*3/uL HOSPITAL LABORATORY LYMPH x10^3 2.36 1.32 - 3.29 [facility] 10*3/uL [facility] MONO x10^3 1.76 (H) 0.33 - 0.92 [facility] 10*3/uL [facility] EOS x10^3 <0.03 (L) 0.03 - 0.39 [facility] 10*3/uL [facility] BASO x10^3 0.04 0.01 - 0.07 [place] [address]*3/uL [facility] Specimen Blood - VENOUS Performing Organization Address City/State/Zipcode Phone Number [facility] CLIA: [id number], [address] [place] [phone] [address] COMP. METABOLIC PANEL ([id number]) (2019 9:10 PM CDT) Pathologist Sig nature NA 138 135 - 145 [facility] mmol/L [facility] K 3.2 (L) 3.5 - 5.0 [facility] mmol/L [facility] CL 102 98 - 108 mmol/L [facility] CO2 TOTAL 23 23 - 31 mmol/L [facility] AGAP 13 2 - 16 [facility] BUN 15 7 - 23 mg/dL [facility] GLUCOSE 176 (H) 70 - 110 mg/dL [facility] CREATININE 0.73 0.50 - 1.04 [facility] mg/dL [facility] TOTAL BILI 0.5 0.1 - 1.1 mg/dL [facility] CALCIUM 10.1 8.6 - 10.6 [facility] mg/dL [facility] T PROTEIN 8.0 6.3 - 8.2 g/dL [facility] ALBUMIN 4.8 3.5 - 5.0 g/dL [facility] ALK PHOS 76 34 - 122 U/L [facility] ALTv 13 5 - 35 U/L [facility] AST(SGOT) 22 13 - 40 U/L [facility] eGFR Calculation 90.2 mL/min/1.73m2 [facility] ([facility] LABORATORY [place]) eGFR Calculation 109.3 mL/min/1.73m2 [facility] () [facility] Specimen Blood - VENOUS Narrative Performed At [facility] of Glomerular Filtration Rate (GFR) [facility] and Staging of Kidney Disease* + [...] tests). Performing Organization Address City/State/Zipcode Phone Number [facility] CLIA: [id number], [address] [place] [address] [address] [facility] [address] documented in this encounter Visit Diagnoses Diagnosis Right upper quadrant abdominal pain - Pr imary Abdominal pain, right upper quadrant Chest pain in adult Pyelonephritis Pyelonephritis, unspecified Left sided numbness Disturbance of skin sensation Confused Unspecified psychosis documented in this encounter Administered Medications Medication Order MAR Action Action Date Dose Rate Site acetaminophen (TYLENOL) tablet Given 09/17/2019 7:14 AM CDT 650 mg 650 mg 650 mg, Oral, Q6HPRN, Starting 09/16/19 at 0044, Until Discontinued, Routine, Pain (scale 1-3) ALPRAZolam (XANAX) tablet 0.5 mg Given 09/16/2019 5:55 AM CDT 0.5 mg 0.5 mg, Oral, TIDPRN, Starting 09/16/19 at 0048, Until Discontinued, Routine, anxiety busPIRone (BUSPAR) tablet 10 mg Given 09/16/2019 9:15 PM CDT 10 mg 10 mg, Oral, BID, First dose on 09/16/19 at 0800, Until Discontinued, Routine Given 09/16/2019 9:22 AM CDT 10 mg enoxaparin (LOVENOX) injection 40 mg Given 09/16/2019 9:22 AM CDT 40 mg Abdo men-SC 40 mg, Subcutaneous, DAILY, First dose on 09/16/19 at 0900, Until Discontinued, Routine NaCl 0.9% (NS) IV infusion 1,000 New Bag 09/16/2019 4:49 AM C DT 1,000 mL 100 mL/hr mL at 100 mL/hr, IV Infusion, CONTINUOUS, Starting 09/16/19 at 0530, Until Discontinued, Routine nicotine (NICODERM) 14 mg/24 hr patch 1 Given 09/17/2019 12:18 A M CDT 1 Patch Patch 1 Patch, Topical, Administer over 24 Hours, Q24H, First dose on 09/16/19 at 0215, Until Discontinued, Routine Given 09/16/2019 3:08 AM CDT 1 Patch nitroglycerin (NITROSTAT) sublingual tab let 0.4 mg 0.4 mg, Sublingual, Q5MIN PRN, Starting 09/16/19 at 0420, Until Discontinued, Routine, Chest pain ondansetron (ZOFRAN (PF)) injection 4 mg Given 09/16/2019 4:50 AM CDT 4 mg 4 mg, Slow IV Push, Q6HPRN, Starting 09/16/19 at 0045, Until Discontinued, Routine, Nausea and Vomiting (N/V) PARoxetine (PAXIL) tablet 30 mg Given 09/16/2019 9:22 AM CDT 30 mg 30 mg, Oral, DAILY, First dose on 09/16/19 at 0900, Until Discontinued, Routine piperacillin-tazobactam (ZOSYN) 4.5 gram/100 Given 4:38 AM CDT 4.5 g mL Piggyback RTU 4.5 g 4.5 g, IV Piggyback, Q6H ABX, First dose on 09/16/19 at 0530, Until Discontinued, 100 mL, Reason for Anti-Infective: Empiric Therapy for Suspected Infection, Empiric Therapy Site: Urine, Duration of therapy: 7 days Given 09/17/2019 12:18 AM CDT 4.5 g Given 09/16/2019 5:04 PM CDT 4.5 g traZODone (DESYREL) tablet 100 mg Given 09/16/2019 9:15 PM CDT 100 mg 100 mg, Oral, QHS, First dose on 09/16/19 at 2100, Until Discontinued, Routine Medication Order MAR Action Action Date Dose Rate Site acetaminophen (TYLENOL) tablet Given 2019 11:28 PM CDT 1,0 00 mg 1,000 mg 1,000 mg, Oral, ONCE, 1 dose, 09/16/19 at 0015, Routine KCL (KLOR-CON M20) tablet 60 mEq Given 09/16/2019 12:58 AM CDT 60 mEq 60 mEq, Oral, ONCE, 1 dose, 09/16/19 at 0145, Routine ketorolac (TORADOL) injection 15 mg Given 09/16/2019 3:17 AM CDT 15 mg 15 mg, Slow IV Push, PRN, 1 dose, Starting 09/16/19 at 0312, Until 09/16/19 at 0317, Routine, pain, interior design faculty member approving Restricted medication: STEPHANIE FARRELL ketorolac (TORADOL) injection 30 mg Given 2019 10:23 PM CDT 30 mg 30 mg, Slow IV Push, ONCE, 1 dose, Wed09/15/19 at 2300, Routine, interior design faculty member approving Restricted medication: MEL DOZIER morpHINE injection 4 mg Given 2019 10:23 PM CDT 4 mg 4 mg, Slow IV Push, ONCE, 1 dose, Wed09/15/19 at 2300, STAT NaCl 0.9% (NS) bolus infusion New Bag 2019 10:23 PM CDT 1,000 mL 999 mL/hr 1,905 mL at 999 mL/hr, 1,905 mL (30 mL/kg 63.5 kg), IV Infusion, ONCE, 1 dose, Wed09/15/19 at 2200, STAT NaCl 0.9% (NS) bolus infusion 500 New Bag 2019 9:09 PM CDT 500 mL 999 mL/hr mL at 999 mL/hr, 500 mL, IV Piggyback, ONCE, 1 dose, Wed09/15/19 at 2200, STAT ondansetron (ZOFRAN (PF)) injection 4 mg Given 2019 10:22 PM CDT 4 mg 4 mg, Slow IV Push, ONCE, 1 dose, Wed09/15/19 at 2300, LILI piperacillin-tazobactam (ZOSYN) 4.5 gram/100 Given 03/2020 10:23 PM CDT 4.5 g mL Piggyback RTU 4.5 g 4.5 g, IV Piggyback, ONCE, 1 dose, Wed09/15/19 at 2200, 100 mL, Reason for Anti-Infective: Documented Infection, Documented Infection Site: Abdominal, Duration of Therapy: 7 days vancomycin 1000 mg in NS 200 mL RTU IV Given 2019 11:32 PM CDT 1,000 mg Piggyback 1,000 mg 1,000 mg (rounded from 952.5 mg = 15 mg/kg 63.5 kg), IV Piggyback, ONCE, 1 dose, Wed09/15/19 at 2300, Reason for Anti-Infective: Documented Infection, Documented Infection Site: Abdominal, Duration of Therapy: 7 days documented in this encounter Insurance Payer Benefit Plan / Subscriber ID Effective Dates Phone Addre ss Type Group [facility] [id number] 2017-Present PPO ([place]) [place] [address] documented as of this encounter
--- NOTE | 2019-09-26 17:27 | EDPHYS ---
Physician Documentation [facility] Name: Nubia Yip Age: 34 yrs Sex: Female : 1985 Arrival Date: 09/26/2019 Time: 14:33 Bed 15 Private MD: ED Physician Rolando Simon HPI: 09/25 14:57 This 34 yrs old Female presents to ER via EMS with complaints of MALAISE. rn 14:57 Reports malaise, chest pain, left body numbness that comes and goes. Reports this began rn while hospitalized for UTI/sepsis. Reports took cipro and completed, felt better. Thinks may be having seizures, along with a stroke, and a heart attack. When asked why she thinks this, she gets upset and not cooperative with exam. EMS was taking her to [place], and patient refused, demanded to be brought here. NO previous hx of seizures/RI/stroke. No seizure meds. Began to shake here, more of kicking motion, toward nursing, pressure applied to trapezius and kicking stopped without a post-ictal period. . Onset: The symptoms/episode began/occurred at an unknown time. Severity of symptoms: At their worst the symptoms were mild in the emergency department the symptoms are unchanged. The patient has not experienced similar symptoms in the past. The patient has been recently seen by a physician:. Historical: - Allergies: 14:39 No Known Allergies; bp - Home Meds: 16:14 Buspirone Oral [Active]; paroxetine oral oral [Active]; Trazodone Oral [Active]; bp - PMHx: 14:39 Anxiety; bp - Immunization history:: Adult Immunizations unknown. - Social history:: Smoking status: unknown. - Family history:: not pertinent. - Hospitalizations: : Patient was recently seen at. ROS: 14:57 Constitutional: Negative for fever, chills, and weight loss, Eyes: Negative for injury, rn pain, redness, and discharge, Neck: Negative for injury, pain, and swelling, Cardiovascular: Negative for palpitations, and edema, Respiratory: Negative for shortness of breath, cough, wheezing, and pleuritic chest pain, Abdomen/GI: Negative for abdominal pain, nausea, vomiting, diarrhea, and constipation, Back: Negative for injury and pain, : Negative for injury, bleeding, discharge, and swelling, MS/Extremity: Negative for injury and deformity, Skin: Negative for injury, rash, and discoloration, Neuro: + for weakness, numbness Exam: 14:57 Constitutional: This is a well developed, well nourished patient who is awake, alert, rn and in no acute distress. Head/Face: Normocephalic, atraumatic. Eyes: Pupils equal round and reactive to light, extra-ocular motions intact. Lids and lashes normal. Conjunctiva and sclera are non-icteric and not injected. Cornea within normal limits. Periorbital areas with no swelling, redness, or edema. ENT: Oropharynx with no redness, swelling, or masses, exudates, or evidence of obstruction, uvula midline. Mucous membranes moist. Cardiovascular: Regular rate and rhythm. No pulse deficits. Respiratory: Speaking full sentences. No increased work of breathing, no retractions or nasal flaring. Abdomen/GI: soft, non-tender Skin: Warm, dry MS/ Extremity: Pulses equal, no cyanosis. Neurovascular intact. Full, normal range of motion. Equal circumference. Neuro: Awake and alert, GCS 15, oriented to person, place, time, and situation. Cranial nerves II-XII grossly intact. Motor strength 5/5 in all extremities. Sensory grossly intact. Cerebellar exam normal. Normal gait. Vital Signs: 14:34 BP 140 / 90; Pulse 95; Resp 18; Temp 98.2; Pulse Ox 100% ; bp 15:45 BP 113 / 78; Pulse 77; Resp 16; Pulse Ox 100% ; bp 17:11 BP 121 / 69; Pulse 78; Resp 16; Pulse Ox 98% ; bp MDM: 14:37 Patient medically screened. rn 17:26 Differential Diagnosis psychiatric disorder, stress reaction, paresthesia, metabolic rn problem, anxiety. Data reviewed: vital signs, nurses notes, lab test result(s), EKG, radiologic studies, CT scan, and as a result, I will discharge patient. Counseling: I had a detailed discussion with the patient and/or guardian regarding: the historical points, exam findings, and any diagnostic results supporting the discharge/admit diagnosis, lab results, radiology results, the need for outpatient follow up, to return to the emergency department if symptoms worsen or persist or if there are any questions or concerns that arise at home. Response to treatment: the patient's condition has returned to base line, Ambulatory multiple times to bathroom., and as a result, I will discharge patient. Special discussion: I discussed with the patient/guardian in detail that at this point there is no indication for admission to the hospital. It is understood, however, that if the symptoms persist or worsen the patient needs to return immediately for re-evaluation. Special discussion: Further emergent ED testing is not indicated at this point in time. I discussed with the patient/guardian in detail the need to arrange with the PCP or specialist further outpatient testing, Based on the history and exam findings, there is no indication for further emergent testing or inpatient evaluation. I discussed with the patient/guardian the need to see the neurologist for further evaluation of the symptoms. 09/25 14:45 Order name: CBC with Diff; Complete Time: 16:01 09/25 14:45 Order name: Basic Metabolic Panel; Complete Time: 17: 09/25 14:45 Order name: Urine Microscopic Only; Complete Time: 15:43 09/25 14:45 Order name: Urine Drug Screen; Complete Time: 17: 09/25 14:45 Order name: Troponin (emerg Dept Use Only); Complete Time: 17: 09/25 15:05 Order name: Urine Dipstick--Ancillary (enter results) em1 09/25 14:45 Order name: CT Head Brain wo Cont; Complete Time: 15:46 09/25 14:45 Order name: IV Start; Complete Time: 15:20 09/25 14:45 Order name: Urine Test (obtain specimen); Complete Time: 15:16 09/25 14:45 Order name: Urine Dipstick-Ancillary (obtain specimen); Complete Time: 15:16 09/25 14:45 Order name: EKG; Complete Time: 14:46 09/25 14:45 Order name: EKG - Nurse/Tech; Complete Time: 15:20 09/25 15:05 Order name: Urine --Ancillary (enter results) em1 Administered Medications: 15:06 Drug: Ativan 1 mg Route: IVP; Site: left antecubital; iw 16:43 Follow up: Response: Anxiety decreased bp Disposition: 09/26/19 17:27 Discharged to Home. Impression: Paresthesia of skin, Chest pain, unspecified. - Condition is Stable. - Discharge Instructions: Nonspecific Chest Pain, Pain Without a Known Cause, Paresthesia. - Medication Reconciliation Form, Thank You Letter, Antibiotic Education, Prescription Opioid Use form. - Follow up: Private Physician; When: As needed; Reason: Recheck today's complaints, Re-evaluation by your physician. - Problem is new. - Symptoms have improved. Signatures: Dispatcher [employer] EDHafsa Cornejo RN RN iw Nieto, Roman, MD MD rn Peltier, Brian, RN RN bp Corrections: (The following items were deleted from the chart) 16:14 14:39 Home Meds: None; bp bp 18:08 17:27 09/26/2019 17:27 Discharged to Home. Impression: Paresthesia of skin; Chest pain, bp unspecified. Condition is Stable. Forms are Medication Reconciliation Form, Thank You Letter, Antibiotic Education, Prescription Opioid Use. Follow up: Private Physician; When: As needed; Reason: Recheck today's complaints, Re-evaluation by your physician. Problem is new. Symptoms have improved. rn
--- NOTE | 2019-09-26 17:27 | ER ---
Nurse's Notes [facility] Name: Nubia Yip Age: 34 yrs Sex: Female : 1985 Arrival Date: 09/26/2019 Time: 14:33 Bed 15 Private MD: Diagnosis: Paresthesia of skin;Chest pain, unspecified Presentation: 09/25 14:34 Chief complaint: EMS states: GENERALIZED MALAISE AND OCCASIONAL SZ-LIKE MOVEMENTS bp WITHOUT LOSS OF VOLUNTARY CONTROL. Coronavirus screen: Proceed with normal triage. Ebola Screen: No symptoms or risks identified at this time. Initial Sepsis Screen: Does the patient meet any 2 criteria? No. Patient's initial sepsis screen is negative. Does the patient have a suspected source of infection? No. Patient's initial sepsis screen is negative. Risk Assessment: Do you want to hurt yourself or someone else? Patient reports no desire to harm self or others. Onset of symptoms is unknown. Care prior to arrival: IV initiated. 20 GA, in the left antecubital area, Glucose check: 136. 14:34 Method Of Arrival: [facility] bp 14:34 Acuity: ZULMA 3 bp Triage Assessment: 14:41 General: Appears in no apparent distress. comfortable, Behavior is appropriate for age, bp agitated, anxious. Pain: Denies pain. EENT: No deficits noted. Neuro: Level of Consciousness is awake, alert, obeys commands, Oriented to person, place, time, situation, Appropriate for age. Cardiovascular: No deficits noted. Respiratory: No deficits noted. GI: No signs and/or symptoms were reported involving the gastrointestinal system. : No signs and/or symptoms were reported regarding the genitourinary system. Derm: No deficits noted. Musculoskeletal: No deficits noted. Historical: - Allergies: 14:39 No Known Allergies; bp - Home Meds: 16:14 Buspirone Oral [Active]; paroxetine oral oral [Active]; Trazodone Oral [Active]; bp - PMHx: 14:39 Anxiety; bp - Immunization history:: Adult Immunizations unknown. - Social history:: Smoking status: unknown. - Family history:: not pertinent. - Hospitalizations: : Patient was recently seen at. Screenin:42 Abuse screen: Denies threats or abuse. Denies injuries from another. Nutritional bp screening: No deficits noted. Tuberculosis screening: No symptoms or risk factors identified. Fall Risk None identified. Assessment: 14:42 General: SEE TRIAGE NOTE. PT REFUSING MD EVALUATION, STATES "I WILL NOT COOPERATE UNTIL bp YOU TAKE ME TO PEE." PT STATING UNABLE TO MOVE EXTREMITIES, BUT THEN ENGAGING IN VOLUNTARY VIOLENT MOTIONS WITH ENTIRE BODY STATING "I'M HAVING A SEIZURE". SZ-LIKE ACTIVITY LYSED WITH NOXIOUS STIMULI.. 15:45 Reassessment: ALL CURRENT ORDERS COMPLETE. bp 17:09 Reassessment: ALL CURRENT ORDERS COMPLETE. DISPO PENDING. bp 17:47 Reassessment: PT D/C HOME AMBULATORY WITH FAMILY, DX WITH PARESTHESIA OF SKIN. bp Vital Signs: 14:34 BP 140 / 90; Pulse 95; Resp 18; Temp 98.2; Pulse Ox 100% ; bp 15:45 BP 113 / 78; Pulse 77; Resp 16; Pulse Ox 100% ; bp 17:11 BP 121 / 69; Pulse 78; Resp 16; Pulse Ox 98% ; bp ED Course: 14:33 Patient arrived in ED. bp 14:36 Triage completed. bp 14:37 Rolando Simon MD is Attending Physician. rn 14:41 Eric Rubin, PRINCESS is Primary Nurse. bp 14:42 Arm band placed on. bp 14:42 Patient has correct armband on for positive identification. Bed in low position. Call bp light in reach. Side rails up X2. 14:45 Maintain EMS IV. Dressing intact. Good blood return noted. Site clean \\T\\ dry. Gauge \\T\\ bp site: 20 GAUGE R AC. 15:12 CT Head Brain wo Cont In Process Unspecified. EDMS 17:08 Urine --Ancillary (enter results) Sent. bp 17:08 Urine Dipstick--Ancillary (enter results) Sent. bp 17:47 No provider procedures requiring assistance completed. IV discontinued, intact, bp bleeding controlled, No redness/swelling at site. Pressure dressing applied. Administered Medications: 15:06 Drug: Ativan 1 mg Route: IVP; Site: left antecubital; iw 16:43 Follow up: Response: Anxiety decreased bp Outcome: 17:27 Discharge ordered by MD. rn 17:47 Discharged to home ambulatory, with family. bp 17:47 Condition: stable 17:47 Discharge instructions given to patient, Instructed on discharge instructions, follow up and referral plans. Demonstrated understanding of instructions, follow-up care. 18:08 Patient left the ED. bp Signatures: Dispatcher [employer] EDHafsa Cornejo RN RN iw Nieto, Roman, MD MD rn Peltier, Brian, RN RN bp Corrections: (The following items were deleted from the chart) 16:14 14:39 Home Meds: None; bp bp 16:16 16:14 No provider procedures requiring assistance completed. bp bp 16:16 16:14 Patient did not have IV access during this emergency room visit. bp bp 17:11 14:42 General: SEE TRIAGE NOTE. bp bp
[2019-09-26 21:05] LABS: Urine Blood TRACE (NEG); Urine Glucose NEGATIVE (NEG); Urine Protein NEGATIVE (NEG); Urine Specific Gravity 1.015 (1.005-1.030); Urine pH 6.5 (5.0-7.0)
[2019-09-27 01:10] VITALS: TEMP 98.2
[2019-09-27 01:13] VITALS: BP 121/69; O2SAT 98
--- NOTE | 2019-09-27 12:24 | EKG ---
Test Date: 2019-09-26 Test Time: 15:38:27 Rn Radiology: LISA MEASUREMENT RESULTS: Intervals: Rate: 80 FL: 124 QRSD: 80 QT: 384 QTc: 442 [place]: P: 69 FL: 124 QRS: 62 T: 55 INTERPRETIVE STATEMENTS: Normal sinus rhythm Normal ECG Compared to ECG 05/12/2013 07:18:28 Sinus tachycardia no longer present Electronically Signed On 09-27-19 12:22:26 CDT by Joss Braswell
== END 2019-09-26 18:08 | disposition home or self-care (01) ==
LOC: ER 14:32
DX: R07.9 Chest pain, unspecified (principal); R20.2 Paresthesia of skin; F41.9 Anxiety disorder, unspecified
CPT/HCPCS: 36415; 70450; 80048; 80307; 81003; 81015; 81025; 84484; 85025; 93005; 96374; 99284